=== PATIENT | female | born 1990 | race Caucasian/White ===

== ENCOUNTER 2016-09-15 10:41 | Emergency (ER) | payer MEDICAID ==
[~2016-09-15] VITALS: Ht 172.7 cm; Wt 90.0 kg
[~2016-09-15 10:41] MED LIST: CLON0.5T PO; DEPA250T2 PO; NICO7DIS2 T-DERMAL; NORE0.354 PO
[2016-09-15 10:43] VITALS: BP 125/64; PULSE 65; RESP 16; TEMP 98.1; O2SAT 96
[2016-09-15] MEDS ORDERED: DOXY100T PO (11:12)
[2016-09-15] MEDS ORDERED: MOME17I EACH NARE (11:13)
--- NOTE | 2016-09-15 11:13 | PD ---
HPI Chief Complaint: Cold / Flu Symptoms Time Seen by Provider: 11:08 Travel History International Travel<30 days: No Contact w/Intl Traveler<30days: No Traveled to known affect area: No History of Present Illness HPI 26-year-old female presents emergency Department with complaint of facial pressure, headache, nasal congestion, cough 2 weeks. Fever and throat irritation in the beginning but not now. Reports ear pressure. Has tried over- the-counter medications with minimal symptom relief. Her son was also sick. No known aggravating factors. Denies shortness of breath, chest pain, nausea, vomiting. Reports productive cough with green/yellowish sputum. Allergies to amoxicillin. No other modifying factors or associated signs and symptoms. PFSH Past Medical History Asthma: No Atrial Fibrillation: Yes Blood Disorders: No Anxiety: Yes Depression: No Heart Rhythm Problems: No Cancer: No Cardiovascular Problems: No High Cholesterol: No Chemotherapy: No Chest Pain: No Congestive Heart Failure: No COPD: No Diabetes: No Diminished Hearing: No Gastrointestinal Disorders: Yes (EMESIS OF BLOOD IN PAST ) Genitourinary: No Immune Disorder: No Musculoskeletal: No Neurologic: Yes Psychiatric: Yes Reproductive: No Respiratory: No Immunizations Current: No Radiation Therapy: No Sleep Apnea: No Thyroid Disease: No ?: Not LMP: 09/07/15 : 1 Para: 1 Past Surgical History Other Surgery: Yes (LEFT HAND ) Social History Alcohol Use: Yes (weekly) Tobacco Use: Yes (4 cigarettes per day) Substance Use: Yes (marijuana) Allergies-Medications (Allergen,Severity, Reaction): Coded Allergies: Amoxicillin (Verified Allergy, Mild, vomiting, 09/15/16) Reported Meds & Prescriptions Reported Meds & Active Scripts Active Doxycycline Hyclate 100 Mg Tab 100 Mg PO BID 10 Days Norethindrone 35 (Norethindrone) 0.35 Mg Tab 1 Tab PO DAILY Reported Depakote DR (Divalproex Sodium) 250 Mg Tabdr 250 Mg PO TID Nicotine Patch (Nicotine) 7 Mg/24 Hr Patch 7 Mg T-DERMAL DAILY Clonazepam 0.5 Mg Tab 0.5 Mg PO BID Review of Systems Except as stated in HPI: all other systems reviewed are Neg Physical Exam Narrative GENERAL: Well-nourished, well-developed female patient, in no acute distress; afebrile, nontoxic-appearing SKIN: Warm and dry. No rash. HEAD: Atraumatic. Normocephalic. Frontal and maxillary sinus tenderness on palpation. EYES: Pupils equal and round at 3 mm with brisk reaction. No scleral icterus. No injection or drainage. PERRLA. ENT: Mucosa pink and moist. Oropharynx without erythema, exudates, tonsillar edema.. No uvular edema. No uvular, palatal, or tonsillar deviation. Airway patent. Bilateral nasal turbinates are erythematous and edematous. EARS: Bilateral pinnae and external canals appear within normal limits. Bilateral tympanic membranes without erythema, dullness or perforation. NECK: Trachea midline. No lymphadenopathy. CARDIOVASCULAR: Regular rate and rhythm. No murmur appreciated. RESPIRATORY: No accessory muscle use. Clear to auscultation. Breath sounds equal bilaterally. GASTROINTESTINAL: Abdomen soft, non-tender, nondistended. Hepatic and splenic margins not palpable. Bowel sounds are active 4 quadrants. MUSCULOSKELETAL: No obvious deformities. No clubbing. No cyanosis. No edema. NEUROLOGICAL: Awake and alert. Oriented 3. No obvious cranial nerve deficits. Motor grossly within normal limits. Normal speech. Moves all extremities. 5/5 strength to all extremities. PSYCHIATRIC: Appropriate mood and affect; insight and judgment normal. Data Data Last Documented VS Vital Signs Date Time Temp Pulse Resp B/P Pulse Ox O2 Delivery O2 Flow Rate FiO2 09/15/16 10:43 98.1 65 16 125/64 96 Room Air MDM Medical Decision Making Medical Screen Exam Complete: Yes Emergency Medical Condition: Yes Medical Record Reviewed: Yes Differential Diagnosis Sinusitis, upper respiratory infection, viral illness Narrative Course 26-year-old female with history of present illness and physical exam consistent with sinusitis. Patient has been sick with symptoms for 2 weeks. Afebrile in the ER. Nontoxic appearing. Allergic to amoxicillin. Doxycycline and Nasonex prescribed for home. Patient is medically cleared and stable for discharge. Discussed reasons to return to the emergency department. Instructed patient to follow up with primary care provider. Patient agrees with treatment plan. The patients vital signs are stable and the patient is stable for outpatient follow- up and treatment. Patient discharged home, stable and in no acute distress. Diagnosis Primary Impression: Sinusitis Qualified Code: J32.9 - Sinusitis, unspecified chronicity, unspecified location Referrals: Primary Care Physician Patient Instructions: General Instructions, Sinusitis (ED) Additional Instructions: Ibuprofen or Tylenol as directed and as needed to reduce fever/pain Get plenty of sleep/rest Drink plenty of fluids to prevent dehydration [place] diet to encourage nutrition such as crackers, fruit, applesauce, toast, soup etc. Use an air humidifier/turn off ceiling fans Follow-up with your primary care provider Return immediately to the emergency department with worsening of symptoms Med/Other Pt SpecificInfo: Prescription(s) given Scripts Mometasone Nasal Ross (Nasonex Nasal Ross)50 Mcg/Act Naspr2 Ross EACH NARE DAILY PRN (NASAL CONGESTION) #1 BOTTLE Ref 0 Prov:Destiny Shi 09/15/16 Doxycycline Hyclate 100 Mg [id number] Mg PO BID 10 Days Prov:Destiny Shi 09/15/16 Disposition: 01 DISCHARGE HOME Condition: Stable Destiny Shi Sep 15, 2016 11:13
== END 2016-09-15 11:21 | disposition home or self-care (01) ==
LOC: NEPB 10:41
DX: J32.9 Chronic sinusitis, unspecified (principal); R05 Cough; I48.91 Unspecified atrial fibrillation; Z86.59 Personal history of other mental and behavioral disorders; Z86.69 Personal history of other diseases of the nervous system and sense organs; Z72.0 Tobacco use
CPT/HCPCS: 99283

== ENCOUNTER 2016-09-27 18:17 | Emergency (ER) | payer MEDICAID ==
[~2016-09-27] VITALS: Ht 172.7 cm; Wt 80.0 kg
[~2016-09-27 18:17] MED LIST changes: +DOXY100T PO; +MOME17I EACH NARE
[2016-09-27 18:20] VITALS: BP 117/68; PULSE 78; RESP 16; TEMP 97.8; O2SAT 96
[2016-09-27] MEDS ORDERED: PRED-503 PO (20:01)
[2016-09-27] MEDS ORDERED: CIPR-9 PO (20:01)
--- NOTE | 2016-09-27 20:05 | PD ---
HPI Chief Complaint: Cold / Flu Symptoms Time Seen by Provider: 20:02 Travel History International Travel<30 days: No Contact w/Intl Traveler<30days: No Traveled to known affect area: No History of Present Illness HPI 26-year-old white female presents to emergency Department with complaints of persistent sinus problems. She's been sick now for nearly 5 weeks. She is just finish a course of doxycycline. She states that she had some improvement but as soon as she stopped her antibiotics the symptoms return. She has had frontal sinus pain, pressure, yellowish nasal discharge, rhinitis. Positive ear pressure but no sore throat. She has had some subjective fever. She denies any nausea vomiting. No abdominal pain or diarrhea. No dysuria or frequency. PFSH Past Medical History Asthma: No Atrial Fibrillation: Yes Blood Disorders: No Anxiety: Yes Depression: No Heart Rhythm Problems: No Cancer: No Cardiovascular Problems: No High Cholesterol: No Chemotherapy: No Chest Pain: No Congestive Heart Failure: No COPD: No Diabetes: No Diminished Hearing: No Gastrointestinal Disorders: Yes (EMESIS OF BLOOD IN PAST ) Genitourinary: No Immune Disorder: No Musculoskeletal: No Neurologic: Yes Psychiatric: Yes Reproductive: No Respiratory: No Immunizations Current: No Radiation Therapy: No Sleep Apnea: No Thyroid Disease: No ?: Unknown LMP: 09/26/16 : 1 Para: 1 Past Surgical History Other Surgery: Yes (LEFT HAND ) Social History Alcohol Use: Yes (weekly) Tobacco Use: Yes (4 cigarettes per day) Substance Use: Yes (marijuana) Allergies-Medications (Allergen,Severity, Reaction): Coded Allergies: Amoxicillin (Verified Allergy, Mild, vomiting, 09/27/16) Reported Meds & Prescriptions Reported Meds & Active Scripts Active Deltasone (Prednisone) 20 Mg Tab 20 Mg PO BID Cipro (Ciprofloxacin HCl) 500 Mg Tab 500 Mg PO BID Nasonex Nasal Moon (Mometasone Furoate) 50 Mcg/Act Naspr 2 Moon EACH NARE DAILY PRN Norethindrone 35 (Norethindrone) 0.35 Mg Tab 1 Tab PO DAILY Reported Depakote DR (Divalproex Sodium) 250 Mg Tabdr 250 Mg PO TID Clonazepam 0.5 Mg Tab 0.5 Mg PO BID Review of Systems Except as stated in HPI: all other systems reviewed are Neg Physical Exam Narrative GENERAL: Well-developed, well-nourished in no acute distress. Nontoxic appearing. HEAD: Normocephalic, atraumatic. Pain on percussion of the frontal sinus EYES: Pupils equal round and reactive. Extraocular motions intact. No scleral icterus. No injection or drainage. ENT: TMs clear without erythema. The external auditory canals clear. Nose: Edema of the turbinates. Clear discharge. Posterior pharynx is pink and moist. No tonsillar edema or exudate. Uvula midline. Airway patent. NECK: Trachea midline.Supple, nontender, moves head freely. No central bony tenderness or spasm. CARDIOVASCULAR: Regular rate and rhythm without murmurs, gallops, or rubs. RESPIRATORY: Clear to auscultation. Breath sounds equal bilaterally. No wheezes , rales, or rhonchi. GASTROINTESTINAL: Abdomen soft, non-tender, nondistended. No hepato-splenomegaly , or palpable masses. No guarding. EXTREMITIES: No clubbing, cyanosis, or edema. No joint tenderness, effusion, or edema noted. BACK: Nontender without deformity or crepitance. No flank tenderness. Data Data Last Documented VS Vital Signs Date Time Temp Pulse Resp B/P Pulse Ox O2 Delivery O2 Flow Rate FiO2 09/27/16 18:20 97.8 78 16 117/68 96 Room Air MDM Medical Decision Making Medical Screen Exam Complete: Yes Emergency Medical Condition: Yes Medical Record Reviewed: Yes Differential Diagnosis MDM: High Differential diagnoses: Pneumonia, bronchitis, URI, sinusitis Narrative Course Patient will be given Cipro and prednisone. She is strongly encouraged to follow-up with a primary care doctor or ENT. Diagnosis Primary Impression: Sinusitis Qualified Code: J01.10 - Subacute frontal sinusitis Patient Instructions: General Instructions Additional Instructions: Rest. Increase fluids. Prednisone and Cipro. Daily Zyrtec or Claritin. Follow-up with a primary care doctor or an ENT physician within one week. Return to the ER for emergencies. Med/Other Pt SpecificInfo: Prescription(s) given Scripts Prednisone (Deltasone)20 Mg Tab20 Mg PO BID #14 TAB Prov:Lincoln Max MD 09/27/16 Ciprofloxacin (Cipro)500 Mg [id number] Mg PO BID #20 TAB Prov:Lincoln Max MD 09/27/16 Selwyn Villegas Sep 27, 2016 20:05
== END 2016-09-27 20:16 | disposition home or self-care (01) ==
LOC: NEPB 18:17
DX: J01.10 Acute frontal sinusitis, unspecified (principal); F17.210 Nicotine dependence, cigarettes, uncomplicated
CPT/HCPCS: 99283

== ENCOUNTER 2016-11-24 13:19 | Emergency (ER) | payer MEDICAID, OTHER ==
[~2016-11-24] VITALS: Ht 172.7 cm; Wt 76.5 kg
[~2016-11-24 13:19] MED LIST changes: +CIPR-9 PO; -DOXY100T PO; -NICO7DIS2 T-DERMAL; +PRED-503 PO
[2016-11-24] MEDS ORDERED: SODIUM CHLOR 0.9% 1000 ML INJ 1,000 ML IV SCH (16:07)
--- NOTE | 2016-11-24 16:13 | PD ---
HPI Chief Complaint: Abdominal Pain Time Seen by Provider: 16:00 Travel History International Travel<30 days: No Contact w/Intl Traveler<30days: No Traveled to known affect area: No History of Present Illness HPI The patient is a 26-year-old female who presents emergency department for abdominal pain. The patient states she developed abdominal pain yesterday morning. The abdominal pain is located lower aspect of the abdomen, mostly on the right side, associated with nausea and vomiting. She also notes a few episodes of loose, watery diarrhea. Abdominal pain is been constant, not alleviated with Motrin at home, and moderate. The patient states she is currently on her menstrual cycle and takes control, denies . Patient denies any dysuria, frequency, urgency, hematuria, or vaginal discharge. The patient does note she is , currently on her menstrual cycle , denies any previous abdominal surgeries. The patient states she was hungry earlier today, went to the cafeteria after she checked into the emergency department and ate a burger and fries, now notes increasing pain. PFSH Past Medical History Asthma: No Atrial Fibrillation: Yes Blood Disorders: No Anxiety: Yes Depression: No Heart Rhythm Problems: No Cancer: No Cardiovascular Problems: No High Cholesterol: No Chemotherapy: No Chest Pain: No Congestive Heart Failure: No COPD: No Diabetes: No Diminished Hearing: No Gastrointestinal Disorders: Yes (EMESIS OF BLOOD IN PAST ) Genitourinary: No Immune Disorder: No Musculoskeletal: No Neurologic: Yes Psychiatric: Yes Reproductive: No Respiratory: No Immunizations Current: No Radiation Therapy: No Sleep Apnea: No Thyroid Disease: No ?: Not LMP: 10/2016 : 1 Para: 1 Past Surgical History Other Surgery: Yes (LEFT HAND ) Social History Alcohol Use: Yes (weekly) Tobacco Use: Yes (4 cigarettes per day) Substance Use: Yes (marijuana) Allergies-Medications (Allergen,Severity, Reaction): Coded Allergies: Amoxicillin (Verified Allergy, Mild, vomiting, 11/24/16) Reported Meds & Prescriptions Reported Meds & Active Scripts Active Deltasone (Prednisone) 20 Mg Tab 20 Mg PO BID Norethindrone 35 (Norethindrone) 0.35 Mg Tab 1 Tab PO DAILY Reported Acyclovir 400 Mg Tab 400 Mg PO DAILY Depakote DR (Divalproex Sodium) 250 Mg Tabdr 250 Mg PO TID Clonazepam 0.5 Mg Tab 0.5 Mg PO BID Review of Systems Except as stated in HPI: all other systems reviewed are Neg General / Constitutional: No: Fever Cardiovascular: No: Chest Pain or Discomfort Respiratory: No: Shortness of Breath Gastrointestinal: Positive: Nausea, Vomiting, Diarrhea, Abdominal Pain Genitourinary: Positive: Vaginal Bleeding (currently on her menstrual cycle), No: Dysuria, Hematuria, Discharge Musculoskeletal: No: Weakness Neurologic: No: Weakness Physical Exam Narrative GENERAL: Awake, alert, pleasant 26-year-old female who appears her stated age and is in no acute respiratory distress. SKIN: Focused skin assessment warm/dry. HEAD: Atraumatic. Normocephalic. EYES: No injection or drainage. ENT: No nasal bleeding or discharge. Mucous membranes pink and moist. NECK: Trachea midline. No JVD. CARDIOVASCULAR: Regular rate and rhythm. No murmur appreciated. RESPIRATORY: No accessory muscle use. Clear to auscultation. Breath sounds equal bilaterally. GASTROINTESTINAL: Abdomen soft, stria present. Tenderness in right lower quadrant and suprapubic, no rebound tenderness. Back: No CVA tenderness. MUSCULOSKELETAL: No obvious deformities. No clubbing. No cyanosis. No edema. NEUROLOGICAL: Awake and alert. No obvious cranial nerve deficits. Motor grossly within normal limits. Normal speech. PSYCHIATRIC: Appropriate mood and affect; insight and judgment normal. Data Data Last Documented VS Vital Signs Date Time Temp Pulse Resp B/P Pulse Ox O2 Delivery O2 Flow Rate FiO2 11/24/16 16:35 67 20 118/75 100 Room Air Orders Complete Blood Count With Diff (11/24/16 16:07) Comprehensive Metabolic Panel (11/24/16 16:07) Lipase (11/24/16 16:07) Urinalysis - C+S If Indicated (11/24/16 16:07) Ct Abd/Pel W/O Iv Contrast (11/24/16 16:07) Iv Access Insert/Monitor (11/24/16 16:07) Ecg Monitoring (11/24/16 16:07) Oximetry (11/24/16 16:07) Morphine Inj (Morphine Inj) (11/24/16 16:15) Ondansetron Inj (Zofran Inj) (11/24/16 16:15) Sodium Chlor 0.9% 1000 Ml Inj (Ns 1000 M (11/24/16 16:07) Sodium Chloride 0.9% Flush (Ns Flush) (11/24/16 16:15) Ed Urine Pregnancytest Poc (11/24/16 16:07) Labs Laboratory Tests Test 11/24/16 16:20 White Blood Count 11.9 TH/MM3 Red Blood Count 4.40 MIL/MM3 Hemoglobin 14.0 GM/DL Hematocrit 42.1 % Mean Corpuscular Volume 95.7 FL Mean Corpuscular Hemoglobin 31.8 PG Mean Corpuscular Hemoglobin 33.3 % Concent Red Cell Distribution Width 13.4 % Platelet Count 270 TH/MM3 Mean Platelet Volume 7.9 FL Neutrophils (%) (Auto) 66.7 % Lymphocytes (%) (Auto) 22.1 % Monocytes (%) (Auto) 9.8 % Eosinophils (%) (Auto) 1.0 % Basophils (%) (Auto) 0.4 % Neutrophils # (Auto) 7.9 TH/MM3 Lymphocytes # (Auto) 2.6 TH/MM3 Monocytes # (Auto) 1.2 TH/MM3 Eosinophils # (Auto) 0.1 TH/MM3 Basophils # (Auto) 0.0 TH/MM3 CBC Comment DIFF FINAL Differential Comment Urine Color YELLOW Urine Turbidity CLEAR Urine pH 6.5 Urine Specific [place] 1.029 Urine Protein TRACE mg/dL Urine Glucose (UA) NEG mg/dL Urine Ketones NEG mg/dL Urine Occult Blood NEG Urine Nitrite NEG Urine Bilirubin NEG Urine Urobilinogen LESS THAN 2.0 MG/DL Urine Leukocyte Esterase NEG Urine RBC LESS THAN 1 /hpf Urine WBC 1 /hpf Urine Squamous Epithelial 2 /hpf Cells Urine Mucus FEW /lpf Microscopic Urinalysis Comment CULT NOT INDICATED Sodium Level 144 MEQ/L Potassium Level 3.5 MEQ/L Chloride Level 106 MEQ/L Carbon Dioxide Level 31.3 MEQ/L Anion Gap 7 MEQ/L Blood Urea Nitrogen 13 MG/DL Creatinine 0.90 MG/DL Estimat Glomerular Filtration 75 ML/MIN Rate Random Glucose 86 MG/DL Calcium Level 8.3 MG/DL Total Bilirubin 0.4 MG/DL Aspartate Amino Transf 16 U/L (AST/SGOT) Alanine Aminotransferase 22 U/L (ALT/SGPT) Alkaline Phosphatase 57 U/L Total Protein 6.6 GM/DL Albumin 3.5 GM/DL Lipase 86 U/L MDM Medical Decision Making Medical Screen Exam Complete: Yes Emergency Medical Condition: Yes Medical Record Reviewed: Yes Interpretation(s) Laboratory Tests Test 11/24/16 16:20 White Blood Count 11.9 TH/MM3 Red Blood Count 4.40 MIL/MM3 Hemoglobin 14.0 GM/DL Hematocrit 42.1 % Mean Corpuscular Volume 95.7 FL Mean Corpuscular Hemoglobin 31.8 PG Mean Corpuscular Hemoglobin 33.3 % Concent Red Cell Distribution Width 13.4 % Platelet Count 270 TH/MM3 Mean Platelet Volume 7.9 FL Neutrophils (%) (Auto) 66.7 % Lymphocytes (%) (Auto) 22.1 % Monocytes (%) (Auto) 9.8 % Eosinophils (%) (Auto) 1.0 % Basophils (%) (Auto) 0.4 % Neutrophils # (Auto) 7.9 TH/MM3 Lymphocytes # (Auto) 2.6 TH/MM3 Monocytes # (Auto) 1.2 TH/MM3 Eosinophils # (Auto) 0.1 TH/MM3 Basophils # (Auto) 0.0 TH/MM3 CBC Comment DIFF FINAL Differential Comment Urine Color YELLOW Urine Turbidity CLEAR Urine pH 6.5 Urine Specific [place] 1.029 Urine Protein TRACE mg/dL Urine Glucose (UA) NEG mg/dL Urine Ketones NEG mg/dL Urine Occult Blood NEG Urine Nitrite NEG Urine Bilirubin NEG Urine Urobilinogen LESS THAN 2.0 MG/DL Urine Leukocyte Esterase NEG Urine RBC LESS THAN 1 /hpf Urine WBC 1 /hpf Urine Squamous Epithelial 2 /hpf Cells Urine Mucus FEW /lpf Microscopic Urinalysis Comment CULT NOT INDICATED Sodium Level 144 MEQ/L Potassium Level 3.5 MEQ/L Chloride Level 106 MEQ/L Carbon Dioxide Level 31.3 MEQ/L Anion Gap 7 MEQ/L Blood Urea Nitrogen 13 MG/DL Creatinine 0.90 MG/DL Estimat Glomerular Filtration 75 ML/MIN Rate Random Glucose 86 MG/DL Calcium Level 8.3 MG/DL Total Bilirubin 0.4 MG/DL Aspartate Amino Transf 16 U/L (AST/SGOT) Alanine Aminotransferase 22 U/L (ALT/SGPT) Alkaline Phosphatase 57 U/L Total Protein 6.6 GM/DL Albumin 3.5 GM/DL Lipase 86 U/L CT abdomen and pelvis reveals no evidence for appendicitis. Cystic mass left adnexal region measuring 3 cm. Lack of intravenous contrast does make detection of etiologies such as pyelonephritis difficult. There is a normal clear and appendix in the right lower quadrant without inflammatory changes. Differential Diagnosis Differential diagnosis includes appendicitis, ovarian torsion, ovarian cyst, PID , cervicitis, UTI, gastritis, enteritis, colitis. Narrative Course IV was established, labs are drawn and sent, and the patient was placed on cardiac telemetry monitoring and continuous pulse oximetry monitoring. The patient was administered morphine, Zofran, and IV fluids. Bedside UA test was obtained and UA was sent to lab. CT of the abdomen and pelvis was ordered to rule out appendicitis. Laboratory evaluation reveals mildly elevated white count of 11.9, LFTs and lipase are unremarkable. UA is negative. CT of the abdomen and pelvis is negative. The patient most likely has gastroenteritis with secondary abdominal pain. The patient is stable for outpatient follow-up. The patient will be provided a copy of her CT results and lab results at discharge with antiemetics. The patient will also be provided a work excuse. Patient is stable for outpatient follow-up. Diagnosis Primary Impression: Gastroenteritis Additional Impression: Abdominal pain Qualified Code: R10.30 - Lower abdominal pain Patient Instructions: General Instructions Additional Instructions: Zofran as directed. Clear liquid diet and advance as tolerated. Work excuse for 2 days. Follow-up with your primary physician. Please provide the patient a copy of her CT results and lab results at discharge. Med/Other Pt SpecificInfo: Prescription(s) given Scripts Ondansetron Odt (Zofran Odt)4 Mg Tab4 Mg SL Q6HR PRN (Nausea/Vomiting) #10 TAB Ref 0 Prov:Moshe Sheffield MD 11/24/16 Disposition: DISCHARGE HOME Condition: Stable Moshe Sheffield MD Nov 24, 2016 16:13
[2016-11-24] MEDS ORDERED: SODIUM CHLORIDE 0.9% FLUSH 10 ML FLUSH IV FLUSH PRN (16:15)
[2016-11-24] MEDS ORDERED: MORPHINE SULFATE 4 MG/ML INJ IV PUSH ONE (16:15)
[2016-11-24] MEDS ORDERED: ONDANSETRON HCL 4 MG/2 ML VIAL IVP ONE (16:15)
[2016-11-24] MEDS ORDERED: ACYC400T PO (16:20)
[2016-11-24 16:35] VITALS: BP 118/75; PULSE 67; RESP 20; O2SAT 100
[2016-11-24 16:40] VITALS: RESP 20
[2016-11-24 16:42] LABS: AUTOMATED NEUTROPHIL # 7.9 TH/MM3 (1.8-7.7); BASOPHIL % 0.4 % (0.0-2.0); EOSINOPHIL # 0.1 TH/MM3 (0-0.4); HEMATOCRIT 42.1 % (35.0-46.0); HEMO FLAGS DIFF FINAL; LYMPH % 22.1 % (9.0-44.0); LYMPHOCYTE # 2.6 TH/MM3 (1.0-4.8); MEAN CELL VOLUME 95.7 FL (80.0-100.0); MEAN CORPUSCULAR HEMOGLOBIN 31.8 PG (27.0-34.0); MEAN CORPUSCULAR HGB CONC 33.3 % (32.0-36.0); MONO % 9.8 % (0.0-8.0); NEUT % 66.7 % (16.0-70.0); PLATELET COUNT 270 TH/MM3 (150-450); RED CELL DISTRIBUTION WIDTH 13.4 % (11.6-17.2); WHITE BLOOD COUNT 11.9 TH/MM3 (4.0-11.0)
[2016-11-24 16:47] LABS: BLOOD, URINE NEG (NEG); GLUCOSE,URINE NEG (NEG); KETONE, URINE NEG (NEG); MUCUS URINE FEW /lpf (OCC); NITRITE,URINE NEG (NEG); PH, URINE 6.5 (5.0-8.5); SQUAMOUS EPITHELIAL CELL URINE 2 /hpf (0-5); URINE COLOR YELLOW (YELLW/STRAW)
[2016-11-24 16:53] LABS: COMMENT (UR) CULT NOT INDICATED; CULTURE IF INDICATED CULT NOT INDICATED
[2016-11-24 17:02] LABS: ANION GAP 7 MEQ/L (5-15); AST (GOT) 16 U/L (15-37); BICARBONATE 31.3 MEQ/L (21.0-32.0); BLOOD UREA NITROGEN 13 MG/DL (7-18); CHLORIDE 106 MEQ/L (98-107); GLOMERULAR FILTRATION RATE 75 ML/MIN (>89); POTASSIUM 3.5 MEQ/L (3.5-5.1); SODIUM (NA) 144 MEQ/L (136-145)
[2016-11-24 17:05] LABS: ALKALINE PHOSPHATASE 57 U/L (45-117); ALT (GPT) 22 U/L (10-53); TOTAL BILIRUBIN ADULT 0.4 MG/DL (0.2-1.0)
--- NOTE | 2016-11-24 17:21 | RADRPT ---
EXAM DATE/TIME: 11/24/2016 17:05 [facility] COMPARISON: No previous studies available for comparison. INDICATIONS : Right lower quadrant pain. ORAL CONTRAST: No oral contrast ingested. RADIATION DOSE: 7.24 CTDIvol (mGy) MEDICAL HISTORY : None SURGICAL HISTORY : None. ENCOUNTER: Initial ACUITY: 1 day PAIN SCALE: 4/10 LOCATION: Right lower quadrant TECHNIQUE: Volumetric scanning of the abdomen and pelvis was performed. Using automated exposure control and adjustment of the mA and/or kV according to patient size, radiation dose was kept as low as reasonably achievable to obtain optimal diagnostic quality images. FINDINGS: Lung bases are clear. There is no pericardial effusion. The liver is free of focal de fects. Spleen, pancreas, adrenals and kidneys are unremarkable. There is a normal appearing appendix in the right lower quadrant without inflammatory changes. This contains air best seen on coronal acquisition 601 image 43. There is no free fluid. There is a 3 cm cystic mass in the left adnexal region. The right adnexal r egion is unremarkable. CONCLUSION: 1. There is no evidence for appendicitis. 2. Cystic mass left adnexal region measuring 3 cm. 3. Lack of intravenous contrast does make detection of etiology such as pyelonephritis difficult. Chester Orozco MD FACR on November 24, 2016 at 17:14 Board Certified Radiologist. This report was verified electronically.
[2016-11-24] MEDS ORDERED: ZOFR4TAB3 SL (17:30)
[2016-11-24 17:54] VITALS: BP 118/75
== END 2016-11-24 18:07 | disposition home or self-care (01) ==
LOC: NEPE 13:19 → NED 15:51 → NEPE 15:59
DX: K52.9 Noninfective gastroenteritis and colitis, unspecified (principal); R10.30 Lower abdominal pain, unspecified; R11.2 Nausea with vomiting, unspecified; I48.91 Unspecified atrial fibrillation; F17.210 Nicotine dependence, cigarettes, uncomplicated
CPT/HCPCS: 74176; 80053; 81001; 83690; 84703; 85025; 96361; 96374; 96375; 99284; J2270; J2405; J7030

== ENCOUNTER 2016-11-29 15:54 | Emergency (ER) | payer MEDICAID, OTHER ==
[~2016-11-29] VITALS: Ht 172.7 cm; Wt 75.0 kg
[~2016-11-29 15:54] MED LIST changes: +ACYC400T PO; -CIPR-9 PO; -MOME17I EACH NARE; +ZOFR4TAB3 SL
[2016-11-29 15:56] VITALS: BP 120/80; PULSE 67; RESP 16; TEMP 98.5; O2SAT 99
[2016-11-29] MEDS ORDERED: DIVA250ER PO (18:53)
[2016-11-29] MEDS ORDERED: DEPA500T3 PO (18:53)
[2016-11-29 19:48] LABS: BLOOD, URINE NEG (NEG); GLUCOSE,URINE NEG (NEG); KETONE, URINE NEG (NEG); NITRITE,URINE NEG (NEG); PH, URINE 6.5 (5.0-8.5); SQUAMOUS EPITHELIAL CELL URINE 1 /hpf (0-5); URINE COLOR COLORLESS (YELLW/STRAW)
[2016-11-29 19:51] LABS: COMMENT (UR) CULT NOT INDICATED; CULTURE IF INDICATED CULT NOT INDICATED
[2016-11-29 20:00] VITALS: BP 120/56; PULSE 66; RESP 14; O2SAT 97
[2016-11-29] MEDS ORDERED: DOXY100C PO (20:35)
[2016-11-29] MEDS ORDERED: METR250 PO (20:35)
--- NOTE | 2016-11-29 20:35 | PD ---
HPI Chief Complaint: ENT Complaint Time Seen by Provider: 18:57 Travel History International Travel<30 days: No Contact w/Intl Traveler<30days: No Traveled to known affect area: No History of Present Illness HPI 26-year-old female came to the emergency room with history of sinus infection and vaginal discharge. Patient says that she has been having these symptoms for past couple days. Her nose and sinuses feel very congested. She's been having fever and chills. She was wearing a thick jacket in the room. She is also complaining of greenish discharge from her vaginal area that is fishy odor. [facility] Past Medical History Narrative Medical List of her past medical, surgical, social and family history was reviewed from the nursing note. Asthma: No Atrial Fibrillation: Yes Blood Disorders: No Bipolar Disorder: Yes Anxiety: Yes Depression: No Heart Rhythm Problems: No Cancer: No Cardiovascular Problems: No High Cholesterol: No Chemotherapy: No Chest Pain: No Congestive Heart Failure: No COPD: No Diabetes: No Diminished Hearing: No Gastrointestinal Disorders: Yes (EMESIS OF BLOOD IN PAST ) Genitourinary: No Immune Disorder: No Musculoskeletal: No Neurologic: Yes Psychiatric: Yes Reproductive: No Respiratory: No Integumentary: Yes (herpes) Immunizations Current: No Radiation Therapy: No Seizures: Yes Sleep Apnea: No Thyroid Disease: No Tetanus Vaccination: < 5 Years Influenza Vaccination: No ?: Not LMP: 11/25/16 : 1 Para: 1 Miscarriage: 0 : 0 Past Surgical History Other Surgery: Yes (LEFT HAND ) Social History Alcohol Use: Yes (weekly) Tobacco Use: Yes (4 cigarettes per day) Substance Use: Yes (marijuana) Allergies-Medications (Allergen,Severity, Reaction): Coded Allergies: Amoxicillin (Verified Adverse Reaction, Mild, vomiting, 11/29/16) Comments List of allergies reviewed from the nursing note. Reported Meds & Prescriptions Reported Meds & Active Scripts Active Flagyl (Metronidazole) 250 Mg Tab 250 Mg PO TID Doxycycline Hyclate 100 Mg Cap 100 Mg PO BID Zofran Odt (Ondansetron Odt) 4 Mg Tab 4 Mg SL Q6HR PRN Reported Depakote ER (Divalproex Sodium) 250 Mg Bridgett 250 Mg PO DAILY Depakote ER (Divalproex Sodium) 500 Mg Bridgett 500 Mg PO HS Acyclovir 400 Mg Tab 400 Mg PO DAILY Clonazepam 0.5 Mg Tab 0.5 Mg PO BID Narrative Medication List of her home medications reviewed from the nursing note. Review of Systems Except as stated in HPI: all other systems reviewed are Neg Physical Exam Narrative GENERAL: Awake, alert, no obvious distress SKIN: Focused skin assessment warm/dry. HEAD: Atraumatic. Normocephalic. EYES: Pupils equal and round. No scleral icterus. No injection or drainage. ENT: No nasal bleeding or discharge. Mucous membranes pink and moist. NECK: Trachea midline. No JVD. CARDIOVASCULAR: Regular rate and rhythm. No murmur appreciated. RESPIRATORY: No accessory muscle use. Clear to auscultation. Breath sounds equal bilaterally. GASTROINTESTINAL: Abdomen soft, non-tender, nondistended. Hepatic and splenic margins not palpable. : External inspection was within normal limit. Speculum exam was done and cultures were collected. No obvious foul-smelling discharge noticed. No CMT or adnexal tenderness. MUSCULOSKELETAL: No obvious deformities. No clubbing. No cyanosis. No edema. NEUROLOGICAL: Awake and alert. No obvious cranial nerve deficits. Motor grossly within normal limits. Normal speech. PSYCHIATRIC: Appropriate mood and affect; insight and judgment normal. Data Data Last Documented VS Vital Signs Date Time Temp Pulse Resp B/P Pulse Ox O2 Delivery O2 Flow Rate FiO2 11/29/16 20:00 66 14 120/56 97 Room Air 11/29/16 15:56 98.5 Orders Gc And Chlamydia Pcr (11/29/16 19:26) Urinalysis - C+S If Indicated (11/29/16 19:26) Ed Urine Pregnancytest Poc (11/29/16 19:26) Metronidazole (Flagyl) (11/29/16 20:45) Doxycycline (Vibramycin) (11/29/16 20:45) Wet Prep Profile (11/29/16 21:12) Labs Laboratory Tests Test 11/29/16 11/29/16 11/29/16 19:39 19:49 19:50 Urine Color COLORLESS Urine Turbidity CLEAR Urine pH 6.5 Urine Specific [place] 1.002 Urine Protein NEG mg/dL Urine Glucose (UA) NEG mg/dL Urine Ketones NEG mg/dL Urine Occult Blood NEG Urine Nitrite NEG Urine Bilirubin NEG Urine Urobilinogen LESS THAN 2.0 MG/DL Urine Leukocyte Esterase TRACE Urine WBC 1 /hpf Urine Squamous Epithelial 1 /hpf Cells Microscopic Urinalysis Comment CULT NOT INDICATED Chlamydia trachomatis DNA NOT DETECTED (PCR) Neisseria gonorrhoeae DNA NOT DETECTED (PCR) Clue Cells (Wet Prep) NONE SEEN Vaginal Trichomonas (Wet Prep) NONE SEEN Vaginal Yeast (Wet Prep) NONE SEEN MDM Medical Decision Making Medical Screen Exam Complete: Yes Emergency Medical Condition: Yes Medical Record Reviewed: Yes Differential Diagnosis Sinusitis, vaginitis Narrative Course 8:30 PM patient was given 1 dose of medication here and discharged home on prescription. Procedures EKG Prior to Arrival: No Diagnosis Primary Impression: Sinusitis Qualified Code: J01.90 - Acute sinusitis, recurrence not specified, unspecified location Additional Impression: Vaginitis Qualified Code: N76.0 - Acute vaginitis Referrals: Primary Care Physician 1 week Additional Instructions: Please return to the ER if the condition worsens or any other new concerns. The medications as per the prescription direction. Protected sex with condoms only for 4 weeks. Her partner will need to be treated if the GC and/or chlamydia comes back positive. Follow-up with the primary care in couple days. Med/Other Pt SpecificInfo: Prescription(s) given Scripts Metronidazole (Flagyl)250 Mg [id number] Mg PO TID #14 TAB Ref 0 Prov:Deborah Knott MD 11/29/16 Doxycycline Hyclate 100 Mg [id number] Mg PO BID #20 CAP Ref 0 Prov:Deborah Knott MD 11/29/16 Disposition: DISCHARGE HOME Condition: Stable Deborah Knott MD Nov 29, 2016 20:35
[2016-11-29] MEDS ORDERED: DOXYCYCLINE HYCLATE 100 MG CAP PO ONE (20:45)
[2016-11-29] MEDS ORDERED: metroNIDAZOLE 500 MG TAB PO ONE (20:45)
[2016-11-29 22:25] LABS: CHLAMYDIA PCR NOT DETECTED (NOT DETECT); NEISSERIA PCR NOT DETECTED (NOT DETECT)
== END 2016-11-29 20:52 | disposition home or self-care (01) ==
LOC: NEPA 15:54
DX: J01.90 Acute sinusitis, unspecified (principal); N76.0 Acute vaginitis; I48.91 Unspecified atrial fibrillation; F31.9 Bipolar disorder, unspecified; F41.9 Anxiety disorder, unspecified
CPT/HCPCS: 81001; 84703; 87210; 87491; 87591; 99283

== ENCOUNTER 2017-01-01 18:00 | Emergency (ER) | payer MEDICAID, OTHER ==
[~2017-01-01] VITALS: Ht 172.7 cm; Wt 76.9 kg
[~2017-01-01 18:00] MED LIST changes: -DEPA250T2 PO; +DEPA500T3 PO; +DIVA250ER PO; +DOXY100C PO; +METR250 PO; -NORE0.354 PO; -PRED-503 PO
[2017-01-01 18:03] VITALS: BP 108/63; PULSE 76; RESP 18; TEMP 98.2; O2SAT 98
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
[2017-01-01] MEDS ORDERED: AZITHROMYCIN PWD FOR SUSP 1 GM PACKET PO ONE (20:30)
[2017-01-01] MEDS ORDERED: LIDOCAINE HCL 1% 50 ML VIAL IM ONE (20:30)
[2017-01-01] MEDS ORDERED: cefTRIAXone 250 MG VIAL IM ONE (20:30)
[2017-01-01] MEDS ORDERED: ZYRT10CA PO (20:40)
[2017-01-01] MEDS ORDERED: FLUT1SPR5 EACH NARE (20:40)
[2017-01-01 22:49] LABS: CHLAMYDIA PCR NOT DETECTED (NOT DETECT); NEISSERIA PCR NOT DETECTED (NOT DETECT)
== END 2017-01-01 21:22 | disposition home or self-care (01) ==
LOC: NEPD 18:00
DX: N89.8 Other specified noninflammatory disorders of vagina (principal); J31.0 Chronic rhinitis; I48.91 Unspecified atrial fibrillation; F17.210 Nicotine dependence, cigarettes, uncomplicated
CPT/HCPCS: 84703; 87210; 87491; 87591; 96372; 99283; J0696

== ENCOUNTER 2017-06-13 16:25 | Emergency (ER) | payer MEDICAID ==
[~2017-06-13] VITALS: Ht 172.7 cm; Wt 74.6 kg
[~2017-06-13 16:25] MED LIST changes: +FLUT1SPR5 EACH NARE; +ZYRT10CA PO
[2017-06-13 16:26] VITALS: BP 112/68; PULSE 78; RESP 15; TEMP 98.6; O2SAT 97
[2017-06-13] MEDS ORDERED: MOME17I EACH NARE (17:10)
[2017-06-13] MEDS ORDERED: AZIT250T3 PO (17:10)
--- NOTE | 2017-06-13 17:10 | PD ---
HPI Chief Complaint: ENT Complaint Time Seen by Provider: 17:08 Travel History International Travel<30 days: No Contact w/Intl Traveler<30days: No Traveled to known affect area: No History of Present Illness HPI 27-year-old female presents to the emergency Department with complaint of cough , nasal congestion, ear pressure, sinus pressure 1 week. Denies fevers. Reports headaches. Reports throat irritation. Denies sulfa throat, difficulty swallowing, unusual drooling. Denies shortness of breath, abdominal pain, vomiting. Has been taking cold and flu Tylenol for symptom management. Symptoms are mild in severity. No known aggravating or relieving factors. Her son was sick with similar symptoms last week. Allergies to amoxicillin. Has no other medical complaints. No other modifying factors or associated signs and symptoms. PFSH Past Medical History Asthma: No Atrial Fibrillation: Yes Blood Disorders: No Bipolar Disorder: Yes Anxiety: Yes Depression: No Heart Rhythm Problems: No Cancer: No Cardiovascular Problems: No High Cholesterol: No Chemotherapy: No Chest Pain: No Congestive Heart Failure: No COPD: No Diabetes: No Diminished Hearing: No Gastrointestinal Disorders: Yes (EMESIS OF BLOOD IN PAST ) Genitourinary: No Immune Disorder: No Musculoskeletal: No Neurologic: Yes Psychiatric: Yes Reproductive: No Respiratory: No Integumentary: Yes (herpes) Immunizations Current: No Radiation Therapy: No Seizures: Yes Sleep Apnea: No Thyroid Disease: No ?: Not LMP: 05/31/17 : 1 Para: 1 Miscarriage: 0 : 0 Past Surgical History Other Surgery: Yes (LEFT HAND ) Social History Alcohol Use: Yes (weekly) Tobacco Use: Yes (4 cigarettes per day) Substance Use: Yes (marijuana) Allergies-Medications (Allergen,Severity, Reaction): Coded Allergies: amoxicillin (Unverified Adverse Reaction, Mild, vomiting, 04/15/17) Reported Meds & Prescriptions Reported Meds & Active Scripts Active Nasonex Nasal [place] (Mometasone Furoate) 50 Mcg/Act Naspr 2 [place] EACH NARE DAILY PRN Azithromycin 250 Mg Tab 250 Mg PO DIRECTED Take 2 tabs (500 mg) on day 1 then 1 tab daily x 4 days. Zyrtec Allergy (Cetirizine HCl) 10 Mg Cap 10 Mg PO DAILY 30 Days Flonase Nasal [place] (Fluticasone Nasal [place]) 50 Mcg/Act [place] 100 Mcg EACH NARE BID 14 Days Flagyl (Metronidazole) 250 Mg Tab 250 Mg PO TID Doxycycline Hyclate 100 Mg Cap 100 Mg PO BID Zofran Odt (Ondansetron Odt) 4 Mg Tab 4 Mg SL Q6HR PRN Reported Depakote ER (Divalproex Sodium) 250 Mg Bridgett 250 Mg PO DAILY Depakote ER (Divalproex Sodium) 500 Mg Bridgett 500 Mg PO HS Acyclovir 400 Mg Tab 400 Mg PO DAILY Clonazepam 0.5 Mg Tab 0.5 Mg PO BID Review of Systems Except as stated in HPI: all other systems reviewed are Neg Physical Exam Narrative GENERAL: Well-nourished, well-developed female patient, in no acute distress; afebrile, nontoxic-appearing SKIN: Warm and dry. No rash. HEAD: Atraumatic. Normocephalic. EYES: Pupils equal and round. No scleral icterus. No injection or drainage. ENT: Mucosa pink and moist. No erythema or exudates. No uvular edema. No uvular , palatal, or tonsillar deviation. Airway patent. EARS: Bilateral pinnae and external canals appear within normal limits. Bilateral tympanic membranes without erythema, dullness or perforation. NECK: Trachea midline. No lymphadenopathy. CARDIOVASCULAR: Regular rate and rhythm. No murmur appreciated. RESPIRATORY: No accessory muscle use. Clear to auscultation. Breath sounds equal bilaterally. No retractions or tachypnea. GASTROINTESTINAL: Flat. MUSCULOSKELETAL: No obvious deformities. No clubbing. No cyanosis. No edema. NEUROLOGICAL: Awake and alert. Oriented 3. No obvious cranial nerve deficits. Motor grossly within normal limits. Normal speech. Moves all extremities. 5/5 strength to all extremities. PSYCHIATRIC: Appropriate mood and affect; insight and judgment normal. Data Data Last Documented VS Vital Signs Date Time Temp Pulse Resp B/P (MAP) Pulse Ox O2 Delivery O2 Flow Rate FiO2 06/13/17 16:26 98.6 78 15 112/68 (83) 97 Orders Orders Ed Discharge Order (06/13/17 17:08) [facility] Medical Decision Making Medical Screen Exam Complete: Yes Emergency Medical Condition: Yes Medical Record Reviewed: Yes Differential Diagnosis Sinusitis, URI, viral illness, pharyngitis Narrative Course 27-year-old female with nonspecific URI. She has been sick for one week. She is afebrile and nontoxic-appearing. Denies fever, vomiting. Physical exam is unremarkable. I will treat patient with antibiotics secondary to length of illness. Patient allergic to amoxicillin. Azithromycin and Nasonex nasal spray prescribed for home. Instructed patient to follow up with primary care provider. Patient verbalizes understanding and agreement with treatment plan. Patient is medically cleared and stable for discharge. Discussed reasons to return to the emergency department. Patient agrees with treatment plan. The patients vital signs are stable and the patient is stable for outpatient follow- up and treatment. Patient discharged home, stable and in no acute distress. Diagnosis Primary Impression: URI (upper respiratory infection) Qualified Codes: J06.9 - Acute upper respiratory infection, unspecified Referrals: [facility] Primary Care Physician Patient Instructions: General Instructions, Safe Use of Cough and Cold Medicines (ED), Upper Respiratory Infection (ED) Departure Forms: Tests/Procedures, Work Release Enter return to work date: Jun 15, 2017 Additional Instructions: Antibiotics as prescribed and complete full course Ibuprofen or Tylenol as instructed and as needed for fever/pain [id number] cough and cold medications as directed and as needed for symptom management Get plenty of sleep/rest Drink plenty of fluids to prevent dehydration; popsicles and Gatorade Use an air humidifier/turn off ceiling fans Follow-up with primary care provider Return immediately to the emergency department with worsening of symptoms Med/Other Pt SpecificInfo: Prescription(s) given Scripts Mometasone Nasal [place] (Nasonex Nasal [place]) 50 Mcg/Act Naspr 2 SPRAY EACH NARE DAILY Y for NASAL CONGESTION, #1 BOTTLE 0 Refills Prov: Destiny Shi 06/13/17 Azithromycin (Azithromycin) 250 Mg Tab 250 MG PO DIRECTED for Infection, #6 TAB 0 Refills Take 2 tabs (500 mg) on day 1 then 1 tab daily x 4 days. Prov: Destiny Shi 06/13/17 Disposition: 01 DISCHARGE HOME Condition: Stable Destiny Shi Jun 13, 2017 17:10
== END 2017-06-13 17:48 | disposition home or self-care (01) ==
LOC: NEPK 16:25
DX: J06.9 Acute upper respiratory infection, unspecified (principal); R51 Headache; I48.91 Unspecified atrial fibrillation; Z79.01 Long term (current) use of anticoagulants; F31.9 Bipolar disorder, unspecified; F41.9 Anxiety disorder, unspecified; G40.909 Epilepsy, unspecified, not intractable, without status epilepticus; F17.210 Nicotine dependence, cigarettes, uncomplicated; Z79.899 Other long term (current) drug therapy
CPT/HCPCS: 99283

== ENCOUNTER 2017-07-21 12:04 | Emergency (ER) | payer MEDICAID ==
[~2017-07-21 12:04] MED LIST changes: +AZIT250T3 PO; +MOME17I EACH NARE
[2017-07-21 12:06] VITALS: BP 118/64; PULSE 79; RESP 18; TEMP 97.7; O2SAT 98
[2017-07-21] MEDS ORDERED: SODIUM CHLOR 0.9% 1000 ML INJ 1,000 ML IV SCH (12:36)
--- NOTE | 2017-07-21 12:37 | PD ---
HPI Chief Complaint: GI Complaint Time Seen by Provider: 12:32 Travel History International Travel<30 days: No Contact w/Intl Traveler<30days: No Traveled to known affect area: No History of Present Illness HPI 27 year-old woman presents emergency department complaining of abdominal pain. States her son was sick with nausea vomiting diarrhea couple weeks ago. She had similar symptoms for about a week. Her diarrhea is mostly resolved, but she still is nausea, and now is having diffuse severe abdominal pain. She states she is a history of similar symptoms earlier and was diagnosed with a GI infection. She feels like she may be dehydrated. No fevers. Decreased urination. No other complaints. No history of abdominal surgery. History Past Medical History Narrative Medical Mental health problems Tetanus Vaccination: < 5 Years : 1 Para: 1 Social History Alcohol Use: Yes (weekly) Tobacco Use: Yes (4 cigarettes per day) Allergies-Medications (Allergen,Severity, Reaction): Coded Allergies: amoxicillin (Unverified Adverse Reaction, Mild, vomiting, 07/21/17) Reported Meds & Prescriptions Reported Meds & Active Scripts Active Reported Depakote ER (Divalproex Sodium) 250 Mg Bridgett 250 Mg PO DAILY Depakote ER (Divalproex Sodium) 500 Mg [place] 500 Mg PO HS Clonazepam 0.5 Mg Tab 0.5 Mg PO BID Review of Systems Except as stated in HPI: all other systems reviewed are Neg Physical Exam Narrative GENERAL: Well-appearing 19 year-old woman, no acute distress. SKIN: Focused skin assessment warm/dry. HEAD: Atraumatic. Normocephalic. EYES: Pupils equal and round. No scleral icterus. No injection or drainage. ENT: No nasal bleeding or discharge. Mucous membranes pink and moist. NECK: Trachea midline. No JVD. CARDIOVASCULAR: Regular rate and rhythm. No murmur appreciated. RESPIRATORY: No accessory muscle use. Clear to auscultation. Breath sounds equal bilaterally. GASTROINTESTINAL: Abdomen is obese and soft. There is minimal lower abdominal tenderness palpation bilaterally. No rebound or guarding. MUSCULOSKELETAL: No obvious deformities. No clubbing. No cyanosis. No edema. NEUROLOGICAL: Awake and alert. No obvious cranial nerve deficits. Motor grossly within normal limits. Normal speech. PSYCHIATRIC: Appropriate mood and affect; insight and judgment normal. Data Data Last Documented VS Vital Signs Date Time Temp Pulse Resp B/P (MAP) Pulse Ox O2 Delivery O2 Flow Rate FiO2 07/21/17 12:06 97.7 79 18 118/64 (82) 98 Room Air Orders Orders Complete Blood Count With Diff (07/21/17 12:36) Comprehensive Metabolic Panel (07/21/17 12:36) Lipase (07/21/17 12:36) Urinalysis - C+S If Indicated (07/21/17 12:36) Iv Access Insert/Monitor (07/21/17 12:36) Ecg Monitoring (07/21/17 12:36) Oximetry (07/21/17 12:36) Ondansetron Inj (Zofran Inj) (07/21/17 12:45) Sodium Chlor 0.9% 1000 Ml Inj (Ns 1000 M (07/21/17 12:36) Sodium Chloride 0.9% Flush (Ns Flush) (07/21/17 12:45) Dicyclomine Inj (Bentyl Inj) (07/21/17 12:45) Ed Urine Pregnancytest Poc (07/21/17 12:36) MDM Medical Decision Making Medical Screen Exam Complete: Yes Emergency Medical Condition: Yes Differential Diagnosis Gastroenteritis, cramping, UTI, appendicitis, enteritis, obstruction, other Narrative Course Medical decision making Is a 27 year-old woman presents emergency department complaining of nausea by diarrhea and now some abdominal pain. She is a benign abdominal exam. She had a CT scan in October of this year that was negative for similar symptoms. We'll check labs, IV fluid hydration, avoid opiates, recommend supportive treatment with Zofran, Bentyl if needed. Likely discharge. Casey Bashir MD Jul 21, 2017 12:37
[2017-07-21] MEDS ORDERED: ONDANSETRON HCL 4 MG/2 ML VIAL IVP ONE (12:45)
[2017-07-21] MEDS ORDERED: DICYCLOMINE HCL 20 MG/2 ML VIAL IM ONE (12:45)
[2017-07-21] MEDS ORDERED: SODIUM CHLORIDE 0.9% FLUSH 10 ML FLUSH IV FLUSH PRN (12:45)
--- NOTE | 2017-07-21 13:04 | PD ---
Physical Exam Date Seen by Provider: Jul 21, 2017 Time Seen by Provider: 13:02 Narrative 27-year-old female with complaints of abdominal pain and nausea for 2 weeks. Patient evaluated by Dr. Bashir in triage. Labs and medications are ordered. Patient is awaiting final disposition status post labs and medications. Please see Dr. Bashir's note. Data Data Last Documented VS Vital Signs Date Time Temp Pulse Resp B/P (MAP) Pulse Ox O2 Delivery O2 Flow Rate FiO2 07/21/17 15:19 07/21/17 13:57 18 99 Room Air 07/21/17 12:06 97.7 79 Orders Orders Complete Blood Count With Diff (07/21/17 12:36) Comprehensive Metabolic Panel (07/21/17 12:36) Lipase (07/21/17 12:36) Urinalysis - C+S If Indicated (07/21/17 12:36) Iv Access Insert/Monitor (07/21/17 12:36) Ecg Monitoring (07/21/17 12:36) Oximetry (07/21/17 12:36) Ondansetron Inj (Zofran Inj) (07/21/17 12:45) Sodium Chlor 0.9% 1000 Ml Inj (Ns 1000 M (07/21/17 12:36) Sodium Chloride 0.9% Flush (Ns Flush) (07/21/17 12:45) Dicyclomine Inj (Bentyl Inj) (07/21/17 12:45) Ed Urine Pregnancytest Poc (07/21/17 12:36) Ed Discharge Order (07/21/17 14:01) Ketorolac Inj (Toradol Inj) (07/21/17 14:30) Labs Laboratory Tests Test 07/21/17 13:14 07/21/17 13:15 White Blood Count 8.5 TH/MM3 Red Blood Count 4.33 MIL/MM3 Hemoglobin 14.1 GM/DL Hematocrit 41.7 % Mean Corpuscular Volume 96.3 FL Mean Corpuscular Hemoglobin 32.6 PG Mean Corpuscular Hemoglobin Concent 33.8 % Red Cell Distribution Width 12.6 % Platelet Count 251 TH/MM3 Mean Platelet Volume 7.5 FL Neutrophils (%) (Auto) 54.1 % Lymphocytes (%) (Auto) 34.5 % Monocytes (%) (Auto) 9.8 % Eosinophils (%) (Auto) 1.0 % Basophils (%) (Auto) 0.6 % Neutrophils # (Auto) 4.6 TH/MM3 Lymphocytes # (Auto) 2.9 TH/MM3 Monocytes # (Auto) 0.8 TH/MM3 Eosinophils # (Auto) 0.1 TH/MM3 Basophils # (Auto) 0.1 TH/MM3 CBC Comment DIFF FINAL Differential Comment Blood Urea Nitrogen 21 MG/DL Creatinine 0.73 MG/DL Random Glucose 75 MG/DL Total Protein 6.7 GM/DL Albumin 3.4 GM/DL Calcium Level 8.6 MG/DL Alkaline Phosphatase 55 U/L Aspartate Amino Transf (AST/SGOT) 9 U/L Alanine Aminotransferase (ALT/SGPT) 23 U/L Total Bilirubin 0.4 MG/DL Sodium Level 140 MEQ/L Potassium Level 3.8 MEQ/L Chloride Level 105 MEQ/L Carbon Dioxide Level 28.9 MEQ/L Anion Gap 6 MEQ/L Estimat Glomerular Filtration Rate 95 ML/MIN Lipase 258 U/L Urine Color YELLOW Urine Turbidity CLEAR Urine pH 6.5 Urine Specific [place] 1.020 Urine Protein NEG mg/dL Urine Glucose (UA) NEG mg/dL Urine Ketones NEG mg/dL Urine Occult Blood NEG Urine Nitrite NEG Urine Bilirubin NEG Urine Urobilinogen LESS THAN 2.0 MG/DL Urine Leukocyte Esterase NEG Urine RBC LESS THAN 1 /hpf Urine WBC 1 /hpf Urine Squamous Epithelial Cells 1 /hpf Microscopic Urinalysis Comment CULT NOT INDICATED MDM Medical Record Reviewed: Yes Supervised Visit with ALBA: Yes Narrative Course CBC is unremarkable. Urinalysis is unremarkable. CMP is within normal limits. Diagnosis Primary Impression: Abdominal pain Qualified Codes: R10.84 - Generalized abdominal pain Referrals: Primary Care Physician Patient Instructions: Abdominal Pain (ED), General Instructions Additional Instruction: Labs are all negative at this time. Patient is given Bentyl 10 mg up to 3 times a day when necessary abdominal pain. Patient also given Zofran 4 mg every 6 hours when necessary nausea #20. Patient is to rest and push fluids and follow with her primary care physician or return to emergency Department with worsening symptoms as needed. Scripts Dicyclomine (Bentyl) 10 Mg Cap 10 MG PO TID Y for Bowel Management, #15 CAP 0 Refills Prov: Casey Bashir MD 07/21/17 Ondansetron (Zofran) 4 Mg Tab 4 MG PO Q6HR Y for NAUSEA OR VOMITING, #20 TAB 0 Refills Prov: Casey Bashir MD 07/21/17 Disposition: 01 DISCHARGE HOME Condition: Stable Khanh Ulloa Jul 21, 2017 13:04
[2017-07-21 13:30] LABS: AUTOMATED NEUTROPHIL # 4.6 TH/MM3 (1.8-7.7); BASOPHIL # 0.1 TH/MM3 (0-0.2); BASOPHIL % 0.6 % (0.0-2.0); EOSINOPHIL # 0.1 TH/MM3 (0-0.4); HEMATOCRIT 41.7 % (35.0-46.0); HEMO FLAGS DIFF FINAL; LYMPH % 34.5 % (9.0-44.0); LYMPHOCYTE # 2.9 TH/MM3 (1.0-4.8); MEAN CELL VOLUME 96.3 FL (80.0-100.0); MEAN CORPUSCULAR HEMOGLOBIN 32.6 PG (27.0-34.0); MEAN CORPUSCULAR HGB CONC 33.8 % (32.0-36.0); MONO % 9.8 % (0.0-8.0); NEUT % 54.1 % (16.0-70.0); PLATELET COUNT 251 TH/MM3 (150-450); RED BLOOD COUNT 4.33 MIL/MM3 (4.00-5.30); RED CELL DISTRIBUTION WIDTH 12.6 % (11.6-17.2); WHITE BLOOD COUNT 8.5 TH/MM3 (4.0-11.0)
[2017-07-21 13:37] LABS: BLOOD, URINE NEG (NEG); GLUCOSE,URINE NEG (NEG); KETONE, URINE NEG (NEG); NITRITE,URINE NEG (NEG); PH, URINE 6.5 (5.0-8.5); SQUAMOUS EPITHELIAL CELL URINE 1 /hpf (0-5); URINE COLOR YELLOW (YELLW/STRAW)
[2017-07-21 13:39] LABS: COMMENT (UR) CULT NOT INDICATED; CULTURE IF INDICATED CULT NOT INDICATED
[2017-07-21 13:48] LABS: ALT (GPT) 23 U/L (10-53); ANION GAP 6 MEQ/L (5-15); AST (GOT) 9 U/L (15-37); BICARBONATE 28.9 MEQ/L (21.0-32.0); BLOOD UREA NITROGEN 21 MG/DL (7-18); CHLORIDE 105 MEQ/L (98-107); GLOMERULAR FILTRATION RATE 95 ML/MIN (>89); POTASSIUM 3.8 MEQ/L (3.5-5.1); SODIUM (NA) 140 MEQ/L (136-145)
[2017-07-21 13:51] LABS: ALKALINE PHOSPHATASE 55 U/L (45-117); TOTAL BILIRUBIN ADULT 0.4 MG/DL (0.2-1.0)
[2017-07-21 13:57] VITALS: RESP 18; O2SAT 99
[2017-07-21] MEDS ORDERED: DICY10 PO (13:58)
[2017-07-21] MEDS ORDERED: ZOFR4TAB PO (13:58)
[2017-07-21] MEDS ORDERED: KETOROLAC TROMETHAMINE 30 MG/ML (IVP) VIAL IV PUSH ONE (14:30)
== END 2017-07-21 15:20 | disposition home or self-care (01) ==
LOC: NEPD 12:04
DX: R10.84 Generalized abdominal pain (principal); R11.0 Nausea; R19.7 Diarrhea, unspecified; F17.210 Nicotine dependence, cigarettes, uncomplicated; Z79.899 Other long term (current) drug therapy; Z88.0 Allergy status to penicillin
CPT/HCPCS: 80053; 81001; 83690; 84703; 85025; 96361; 96372; 96374; 96375; 99284; J0500; J1885; J2405; J7030

== ENCOUNTER 2017-11-01 12:06 | Emergency (ER) | payer MEDICAID, OTHER ==
[~2017-11-01] VITALS: Ht 162.6 cm; Wt 82.0 kg
[~2017-11-01 12:06] MED LIST changes: -AZIT250T3 PO; +DICY10 PO; -DOXY100C PO; -FLUT1SPR5 EACH NARE; +JOLI0.35 PO; -METR250 PO; -MOME17I EACH NARE; +ZOFR4TAB PO; -ZOFR4TAB3 SL; -ZYRT10CA PO
[2017-11-01 12:14] VITALS: BP 111/59; PULSE 79; RESP 18; TEMP 98; O2SAT 98
[2017-11-01 12:20] VITALS: BP 111/59; PULSE 89; RESP 18; TEMP 98; O2SAT 99
[2017-11-01] MEDS ORDERED: SODIUM CHLOR 0.9% 1000 ML INJ 1,000 ML IV SCH (12:51)
[2017-11-01] MEDS ORDERED: ONDANSETRON HCL 4 MG/2 ML VIAL IVP ONE (13:00)
[2017-11-01] MEDS ORDERED: SODIUM CHLORIDE 0.9% FLUSH 10 ML FLUSH IV FLUSH PRN (13:00)
[2017-11-01 13:14] LABS: AUTOMATED NEUTROPHIL # 10.4 TH/MM3 (1.8-7.7); BASOPHIL % 0.1 % (0.0-2.0); EOSINOPHIL % 0.3 % (0.0-4.0); HEMATOCRIT 39.7 % (35.0-46.0); HEMOGLOBIN 13.9 GM/DL (11.6-15.3); LYMPH % 6.4 % (9.0-44.0); LYMPHOCYTE # 0.7 TH/MM3 (1.0-4.8); MEAN CELL VOLUME 93.3 FL (80.0-100.0); MEAN CORPUSCULAR HEMOGLOBIN 32.6 PG (27.0-34.0); MEAN PLATELET VOLUME 7.5 FL (7.0-11.0); MONO % 3.6 % (0.0-8.0); MONOCYTE # 0.4 TH/MM3 (0-0.9); NEUT % 89.6 % (16.0-70.0); PLATELET COUNT 279 TH/MM3 (150-450); RED BLOOD COUNT 4.25 MIL/MM3 (4.00-5.30); RED CELL DISTRIBUTION WIDTH 12.1 % (11.6-17.2); WHITE BLOOD COUNT 11.6 TH/MM3 (4.0-11.0)
[2017-11-01 13:19] LABS: BACTERIA, URINE RARE /hpf; BILIRUBIN, URINE NEG (NEG); BLOOD, URINE NEG (NEG); GLUCOSE,URINE NEG (NEG); KETONE, URINE 40 mg/dL (NEG); NITRITE,URINE NEG (NEG); PH, URINE 7.5 (5.0-8.5); SQUAMOUS EPITHELIAL CELL URINE 14 /hpf (0-5); TRANSITIONAL EPI CELLS, URINE <1 /hpf; URINE COLOR YELLOW (YELLW/STRAW); URINE LEUKOCYTE ESTERASE MOD (NEG)
[2017-11-01 13:34] LABS: ALBUMIN 3.1 GM/DL (3.4-5.0); ALT (GPT) 16 U/L (10-53); AST (GOT) 18 U/L (15-37); BICARBONATE 22.9 MEQ/L (21.0-32.0); BLOOD UREA NITROGEN 8 MG/DL (7-18); CALCIUM 7.7 MG/DL (8.5-10.1); CHLORIDE 103 MEQ/L (98-107); CREATININE 0.53 MG/DL (0.50-1.00); GLOMERULAR FILTRATION RATE 137 ML/MIN (>89); GLUCOSE,RANDOM 78 MG/DL (74-106); SODIUM (NA) 135 MEQ/L (136-145)
--- NOTE | 2017-11-01 13:50 | PD ---
HPI Chief Complaint: Cold / Flu Symptoms Time Seen by Provider: 12:23 Travel History International Travel<30 days: No Contact w/Intl Traveler<30days: No Traveled to known affect area: No History of Present Illness HPI 27-year-old female, approximately 10-12 weeks , presents to the emergency department with complaint of generalized abdominal pain, vomiting, diarrhea that started last night. Reports subjective fever last night. Denies vaginal bleeding, vaginal leakage, abnormal vaginal discharge. Denies dysuria. Denies hematemesis or hematochezia. She does not know when her last menstrual period was. Her significant other and her son are both sick with vomiting and diarrhea also. She has not taken any medications or tried any treatments to alleviate her symptoms. She has not had anything to eat or drink since she last vomited at approximately 11 AM. Rates abdominal pain 3/10. Received Zofran from EMS and said it made her abdominal pain go down to a 1/10. Describes abdominal pain as a cramping, burning, aching sensation. Primary care provider is Dr. euceda. She does not have an manager hris at this time. Allergies to amoxicillin. Denies significant past medical history. Has no other medical complaints. No other modifying factors or associated signs and symptoms. PFSH Past Medical History Asthma: No Atrial Fibrillation: Yes Blood Disorders: No Bipolar Disorder: Yes Anxiety: Yes Depression: Yes Heart Rhythm Problems: No Cancer: No Cardiovascular Problems: No High Cholesterol: No Chemotherapy: No Chest Pain: No Congestive Heart Failure: No COPD: No Diabetes: No Diminished Hearing: No Gastrointestinal Disorders: Yes Genitourinary: No Hypertension: No Immune Disorder: No Implanted Vascular Access Dvce: No Musculoskeletal: No Neurologic: Yes Psychiatric: Yes Reproductive: No Respiratory: No Integumentary: Yes (herpes) Immunizations Current: No Radiation Therapy: No Seizures: Yes Sleep Apnea: No Thyroid Disease: No ?: : 1 Para: 1 Miscarriage: 0 : 0 Past Surgical History Other Surgery: Yes (LEFT HAND ) Social History Alcohol Use: Yes (weekly) Tobacco Use: Yes (4 cigarettes per day) Substance Use: Yes (marijuana) Allergies-Medications (Allergen,Severity, Reaction): Coded Allergies: amoxicillin (Unverified Adverse Reaction, Mild, vomiting, 11/01/17) Reported Meds & Prescriptions Reported Meds & Active Scripts Active Macrobid (Nitrofurantoin Monoh/Nitrofur Macro) 100 Mg Cap 100 Mg PO BID 5 Days Zofran Odt (Ondansetron Odt) 4 Mg Tab 4 Mg SL Q8HR PRN Clonazepam 0.5 Mg Tab 0.5 Mg PO BID Acyclovir 400 Mg Tab 400 Mg PO TID Depakote ER (Divalproex Sodium) 250 Mg Bridgett 250 Mg PO DAILY Depakote ER (Divalproex Sodium) 500 Mg Bridgett 500 Mg PO HS Jolivette-35 (Norethindrone) 0.35 Mg Tab 1 Tab PO DAILY Bentyl (Dicyclomine HCl) 10 Mg Cap 10 Mg PO TID PRN Zofran (Ondansetron HCl) 4 Mg Tab 4 Mg PO Q6HR PRN Review of Systems Except as stated in HPI: all other systems reviewed are Neg Physical Exam Narrative GENERAL: Well-nourished, well-developed female patient, in no acute distress; afebrile SKIN: Warm and dry. HEAD: Atraumatic. Normocephalic. EYES: Pupils equal and round. No scleral icterus. No injection or drainage. ENT: Mucosa pink and moist. Airway patent. NECK: Trachea midline. CARDIOVASCULAR: Regular rate and rhythm. No murmur appreciated. RESPIRATORY: No accessory muscle use. Clear to auscultation. Breath sounds equal bilaterally. GASTROINTESTINAL: Abdomen soft, tenderness on palpation to all quadrants, nondistended. Hepatic and splenic margins not palpable. Bowel sounds are active 4 quadrants. Nonrigid. No rebound tenderness. No guarding. BACK: No CVA tenderness. MUSCULOSKELETAL: No obvious deformities. No clubbing. No cyanosis. No edema. NEUROLOGICAL: Awake and alert. Oriented 3. No obvious cranial nerve deficits. Motor grossly within normal limits. Normal speech. PSYCHIATRIC: Appropriate mood and affect; insight and judgment normal. Data Data Last Documented VS Vital Signs Date Time Temp Pulse Resp B/P (MAP) Pulse Ox O2 Delivery O2 Flow Rate FiO2 11/01/17 16:48 11/01/17 12:20 98.0 89 18 99 Room Air Orders Orders Beta Hcg (Quant/Titer) (11/01/17 12:51) Complete Blood Count With Diff (11/01/17 12:51) Comprehensive Metabolic Panel (11/01/17 12:51) Urinalysis - C+S If Indicated (11/01/17 12:51) Iv Access Insert/Monitor (11/01/17 12:51) Oximetry (11/01/17 12:51) Ondansetron Inj (Zofran Inj) (11/01/17 13:00) Sodium Chlor 0.9% 1000 Ml Inj (Ns 1000 M (11/01/17 12:51) Sodium Chloride 0.9% Flush (Ns Flush) (11/01/17 13:00) Potassium Chloride (Kcl) (11/01/17 14:00) Ed Poc Ultrasound (11/01/17 15:43) Calcium Carbonate Chew (Tums Chew) (11/01/17 15:45) Ed Discharge Order (11/01/17 16:36) Labs Laboratory Tests Test 11/01/17 12:58 White Blood Count 11.6 TH/MM3 Red Blood Count 4.25 MIL/MM3 Hemoglobin 13.9 GM/DL Hematocrit 39.7 % Mean Corpuscular Volume 93.3 FL Mean Corpuscular Hemoglobin 32.6 PG Mean Corpuscular Hemoglobin Concent 35.0 % Red Cell Distribution Width 12.1 % Platelet Count 279 TH/MM3 Mean Platelet Volume 7.5 FL Neutrophils (%) (Auto) 89.6 % Lymphocytes (%) (Auto) 6.4 % Monocytes (%) (Auto) 3.6 % Eosinophils (%) (Auto) 0.3 % Basophils (%) (Auto) 0.1 % Neutrophils # (Auto) 10.4 TH/MM3 Lymphocytes # (Auto) 0.7 TH/MM3 Monocytes # (Auto) 0.4 TH/MM3 Eosinophils # (Auto) 0.0 TH/MM3 Basophils # (Auto) 0.0 TH/MM3 CBC Comment DIFF FINAL Differential Comment Urine Color YELLOW Urine Turbidity HAZY Urine pH 7.5 Urine Specific [place] 1.016 Urine Protein TRACE mg/dL Urine Glucose (UA) NEG mg/dL Urine Ketones 40 mg/dL Urine Occult Blood NEG Urine Nitrite NEG Urine Bilirubin NEG Urine Urobilinogen LESS THAN 2.0 MG/DL Urine Leukocyte Esterase MOD Urine RBC 1 /hpf Urine WBC 3 /hpf Urine Squamous Epithelial Cells 14 /hpf Urine Transitional Epithelial Cells <1 /hpf Urine Bacteria RARE /hpf Microscopic Urinalysis Comment CULT NOT INDICATED Blood Urea Nitrogen 8 MG/DL Creatinine 0.53 MG/DL Random Glucose 78 MG/DL Total Protein 6.2 GM/DL Albumin 3.1 GM/DL Calcium Level 7.7 MG/DL Alkaline Phosphatase 43 U/L Aspartate Amino Transf (AST/SGOT) 18 U/L Alanine Aminotransferase (ALT/SGPT) 16 U/L Total Bilirubin 0.7 MG/DL Sodium Level 135 MEQ/L Potassium Level 3.2 MEQ/L Chloride Level 103 MEQ/L Carbon Dioxide Level 22.9 MEQ/L Anion Gap 9 MEQ/L Estimat Glomerular Filtration Rate 137 ML/MIN Human Chorionic Gonadotropin, Quant 197019 MIU/ML [facility] Medical Decision Making Medical Screen Exam Complete: Yes Emergency Medical Condition: Yes Medical Record Reviewed: Yes Differential Diagnosis Gastroenteritis, gastritis, UTI, Narrative Course 27-year-old female approximately 10-12 weeks , patient, with vomiting, diarrhea, and generalized abdominal pain. Others in her family are sick with similar symptoms denies vaginal or urinary symptoms 1351: CBC unremarkable. Potassium 3.2. Potassium 40 M EQ ordered. Urinalysis shows bacteriuria. I will prescribe Macrobid for home. 1542: Calcium 7.7. Chewable calcium 500mg ordered. Beta hCG [id number]. Patient still reports some abdominal discomfort and rates it 3/10. Denies nausea. Patient has tolerated drinking some water without continued vomiting. Patient given Gatorade. POC bedside ultrasound ordered. 1630: Dr. Knott performed bedside US and there is a twin with Twin A 154 bpm and Twin B 160 bpm. See her procedure note. Instructed patient to follow-up with manager hris. Patient provided information for [facility]'s care now. Zofran and Macrobid prescribed for home. Instructed patient to follow up with primary care provider. Patient verbalizes understanding and agreement with treatment plan. Patient is medically cleared and stable for discharge. Discussed reasons to return to the emergency department. Patient agrees with treatment plan. The patients vital signs are stable and the patient is stable for outpatient follow-up and treatment. Patient discharged home, stable and in no acute distress. 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 Primary Care Physician Patient Instructions: First Trimester (ED), Gastroenteritis (ED), General Instructions, Urinary Tract Infection in (ED) Additional Instructions: Antibiotics as prescribed for urinary tract infection Take Zofran as prescribed for nausea/vomiting Increase fluid intake, starting with clear fluids; advancing to a bland diet as tolerated [place] diet to include crackers, rice, toast, bananas as tolerated, advancing slowly to regular diet Follow-up primary care provider in next 1-2 days Follow-up with manager hris I have provided you with information for [facility] women's care now; call and make an appointment Return to emergency department immediately with worsening of symptoms Med/Other Pt SpecificInfo: Prescription(s) given Scripts Nitrofurantoin Monohydrate Macrocrystals (Macrobid) 100 Mg Cap 100 MG PO BID for Infection for 5 Days, #10 CAP 0 Refills Prov: Destiny Shi 11/01/17 Ondansetron Odt (Zofran Odt) 4 Mg Tab 4 MG SL Q8HR Y for Nausea/Vomiting, #6 TAB 0 Refills Prov: Destiny Shi 11/01/17 Disposition: 01 DISCHARGE HOME Condition: Stable Destiny Shi Nov 01, 2017 13:50
[2017-11-01] MEDS ORDERED: POTASSIUM CHLORIDE 20 MEQ CONTROLLED RELEASE TAB PO ONE (14:00)
[2017-11-01 14:05] LABS: ALKALINE PHOSPHATASE 43 U/L (45-117); TOTAL BILIRUBIN ADULT 0.7 MG/DL (0.2-1.0); TOTAL PROTEIN 6.2 GM/DL (6.4-8.2)
[2017-11-01] MEDS ORDERED: CALCIUM CARBONATE 500 MG CHEWABLE TAB CHEW ONE (15:45)
--- NOTE | 2017-11-01 16:31 | PD ---
Physical Exam Date Seen by Provider: Nov 01, 2017 Time Seen by Provider: 16:29 Narrative Patient was seen by my nurse that patient and supervising her. Patient knows that she is but does not know how far along. She has not seen an OB or had an ultrasound. She is having some pelvic pain but no vaginal bleeding. Fluids but the pain continues. I did a bedside ultrasound. Please refer to my procedure note. Patient will be discharged home. Data Data Last Documented VS Vital Signs Date Time Temp Pulse Resp B/P (MAP) Pulse Ox O2 Delivery O2 Flow Rate FiO2 11/01/17 16:48 11/01/17 12:20 98.0 89 18 99 Room Air Orders Orders Beta Hcg (Quant/Titer) (11/01/17 12:51) Complete Blood Count With Diff (11/01/17 12:51) Comprehensive Metabolic Panel (11/01/17 12:51) Urinalysis - C+S If Indicated (11/01/17 12:51) Iv Access Insert/Monitor (11/01/17 12:51) Oximetry (11/01/17 12:51) Ondansetron Inj (Zofran Inj) (11/01/17 13:00) Sodium Chlor 0.9% 1000 Ml Inj (Ns 1000 M (11/01/17 12:51) Sodium Chloride 0.9% Flush (Ns Flush) (11/01/17 13:00) Potassium Chloride (Kcl) (11/01/17 14:00) Ed Poc Ultrasound (11/01/17 15:43) Calcium Carbonate Chew (Tums Chew) (11/01/17 15:45) Ed Discharge Order (11/01/17 16:36) Labs Laboratory Tests Test 11/01/17 12:58 White Blood Count 11.6 TH/MM3 Red Blood Count 4.25 MIL/MM3 Hemoglobin 13.9 GM/DL Hematocrit 39.7 % Mean Corpuscular Volume 93.3 FL Mean Corpuscular Hemoglobin 32.6 PG Mean Corpuscular Hemoglobin Concent 35.0 % Red Cell Distribution Width 12.1 % Platelet Count 279 TH/MM3 Mean Platelet Volume 7.5 FL Neutrophils (%) (Auto) 89.6 % Lymphocytes (%) (Auto) 6.4 % Monocytes (%) (Auto) 3.6 % Eosinophils (%) (Auto) 0.3 % Basophils (%) (Auto) 0.1 % Neutrophils # (Auto) 10.4 TH/MM3 Lymphocytes # (Auto) 0.7 TH/MM3 Monocytes # (Auto) 0.4 TH/MM3 Eosinophils # (Auto) 0.0 TH/MM3 Basophils # (Auto) 0.0 TH/MM3 CBC Comment DIFF FINAL Differential Comment Urine Color YELLOW Urine Turbidity HAZY Urine pH 7.5 Urine Specific [place] 1.016 Urine Protein TRACE mg/dL Urine Glucose (UA) NEG mg/dL Urine Ketones 40 mg/dL Urine Occult Blood NEG Urine Nitrite NEG Urine Bilirubin NEG Urine Urobilinogen LESS THAN 2.0 MG/DL Urine Leukocyte Esterase MOD Urine RBC 1 /hpf Urine WBC 3 /hpf Urine Squamous Epithelial Cells 14 /hpf Urine Transitional Epithelial Cells <1 /hpf Urine Bacteria RARE /hpf Microscopic Urinalysis Comment CULT NOT INDICATED Blood Urea Nitrogen 8 MG/DL Creatinine 0.53 MG/DL Random Glucose 78 MG/DL Total Protein 6.2 GM/DL Albumin 3.1 GM/DL Calcium Level 7.7 MG/DL Alkaline Phosphatase 43 U/L Aspartate Amino Transf (AST/SGOT) 18 U/L Alanine Aminotransferase (ALT/SGPT) 16 U/L Total Bilirubin 0.7 MG/DL Sodium Level 135 MEQ/L Potassium Level 3.2 MEQ/L Chloride Level 103 MEQ/L Carbon Dioxide Level 22.9 MEQ/L Anion Gap 9 MEQ/L Estimat Glomerular Filtration Rate 137 ML/MIN Human Chorionic Gonadotropin, Quant [id number] MIU/ML MDM Supervised Visit with ALBA: Yes Procedures Procedure Narrative Emergency Department Pelvic ultrasound was performed with patient consent. The curvilinear probe was used in the transverse and sagittal views within the suprapubic region revealing twin live intrauterine . heart rate was a baby A had a heartbeat of 154 bpm and baby had a heart rate of 160 bpm. See this measures approximately 12 weeks. 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
[2017-11-01] MEDS ORDERED: ZOFR4TAB3 SL (16:37)
[2017-11-01] MEDS ORDERED: MACR100C2 PO (16:40)
== END 2017-11-01 16:49 | disposition home or self-care (01) ==
LOC: NEPD 12:06
DX: O99.611 Diseases of the digestive system complicating pregnancy, first trimester (principal); K52.9 Noninfective gastroenteritis and colitis, unspecified; R10.2 Pelvic and perineal pain; Z3A.12 12 weeks gestation of pregnancy
CPT/HCPCS: 80053; 81001; 84702; 85025; 96361; 96374; 99284; J2405; J7030

== ENCOUNTER → 2017-12-16 | Outpatient (CLI) | payer MEDICAID ==
[~2017-12-16] MED LIST changes: +MACR100C2 PO; +ZOFR4TAB3 SL
== END ==
LOC: HPND 08:46
PROVIDERS: ATTEND Obstetrics & Gynecology
DX: O99.322 Drug use complicating pregnancy, second trimester (principal); O30.032 Twin pregnancy, monochorionic/diamniotic, second trimester; O99.342 Other mental disorders complicating pregnancy, second trimester
CPT/HCPCS: 76811; 76812; 76817

== ENCOUNTER 2018-05-03 10:34 | Inpatient (IN) ==
[2018-05-03] MEDS ORDERED: Oxytocin 30 Units/500ml Premix 30 UNITS/500 ML BAG IV.SIG PRN (11:28)
[2018-05-03] MEDS ORDERED: Sodium Chlor 0.9% Inj 500 ML IV.SIG PRN (11:29)
[2018-05-03] MEDS ORDERED: Sod Chloride 0.9% Inj 1,000 ML IV.CONT PRN (11:29)
[2018-05-03] MEDS ORDERED: Naloxone Inj 0.4 MG/ML Vial IV.PUSH PRN (11:29)
[2018-05-03] MEDS ORDERED: fentaNYL Citrate Inj 100 MCG/2 ML Ampul IV.PUSH PRN ×2 (11:29)
[2018-05-03] MEDS ORDERED: Citric Acid/Sodium Citrate Liq 30 ML UDC PO SCH (11:30)
--- NOTE | 2018-05-03 11:38 | P.HPOB ---
History of Present Illness Primary Care Physician: No Primary Care Physician Chief Complaint: induction History of Present Illness: 27-year-old female at 37 weeks by 3 month ultrasound presents for induction of labor. She is with monochorionic diamniotic twins. Patient denies any chest pain or shortness of breath. She has noticed some contractions this morning about one an hour. She is having some yellow discharge but no burning or itching in the vaginal area. She has had no large loss of fluid. She is feeling the baby is moving. She had no complications this . She has had one previous that ended in a term vaginal delivery, and no complications with that . She has not received any steroids this . Her ultrasound last Thursday showed both babies head down. She was GBS negative according to chart review on April 07. She denies any past medical history. Takes clonazepam half a milligram at 7 AM and 12 PM. She also takes Ceclor over 4 oral and genital herpes. Her last break out was 4 months ago. She denies any drug or alcohol use. She smokes 3 cigarettes a day. Weeks Gestation:: 37 Para: 2 : 1 Total # of Miscarriage(s): 0 Total # of Abortions (Spontaneous & Elective): 0 - Inpatient Certification I certify that the inpatient services were ordered in accordance with Medicare regulations governing the order. This includes certification that hospital inpatient services are reasonable and necessary and in the case of services not specified as inpatient-only under 42 CFR 419.22(n), that they are appropriately provided as inpatient services in accordance to with the 2-midnight benchmark under 43 CFR 412.3(e) Estimated Total Length of Stay (Days): 4 Plans for Post Hospital Care: Home Review of Systems Constitutional: Denies chills, Denies fever(s) Cardiovascular: Denies chest pain Respiratory: Denies shortness of breath Genitourinary: Reports vaginal discharge, Denies genital itching, Denies genital lesions, Denies vaginal itching Musculoskeletal: Reports joint swelling PMFSH - Medical / Surgical Hx Neg / Unobtainable Medical Problems Denied: Yes - Tobacco History Smoking Status: Current some day smoker Tobacco Type: Cigarettes - Alcohol History How Often Do You Have a Drink Containing Alcohol: Never - Substance Use History Substance History: No History of Abuse Medications and Allergies Allergies Allergy/AdvReac Type Severity Reaction Status Date / Time amoxicillin AdvReac Severe vomiting, Verified 05/03/18 11:58 diarrhea, fever Home Medications Medication Instructions Recorded Confirmed Type acyclovir 400 mg PO TID 05/03/18 05/03/18 History clonazepam 0.5 mg PO BID 05/03/18 05/03/18 History prenat.vits,henny,cek-oorw-uqrox 1 tab PO DAILY 05/03/18 05/03/18 History [ Vitamin] Active Medications: Active Medications Citric Acid/Sodium Citrate (Sodium Citrate/Citric Acid Liq) 30 ml PO PROCESSING ANALYST [facility] Stop: 05/07/18 11:29 Fentanyl Citrate (Fentanyl Inj) 50 mcg IV.PUSH Q1H PRN PRN Reason: Pain Scale 3 - 5 Fentanyl Citrate (Fentanyl Inj) 100 mcg IV.PUSH Q1H PRN PRN Reason: PAIN SCALE 6 TO 10 Lactated Ringer's (Lr 1000 Ml Inj) 1,000 mls @ 125 mls/hr IV.CONT .Q8H ASHLEY Lactated Ringer's (Lr 1000 Ml Inj) 1,000 mls @ 3,000 mls/hr IV.SIG UNSCH PRN PRN Reason: compromise or epidural Sodium Chloride (Ns Inj) 500 mls @ 1,000 mls/hr IV.SIG UNSCH PRN PRN Reason: SEE LABEL COMMENTS Sodium Chloride (Ns Inj) 1,000 mls @ 100 mls/hr IV.CONT .Q10H PRN PRN Reason: SEE LABEL COMMENTS Oxytocin (Pitocin 30 Units/Ns 500 Ml Premix) 30 units in 500 mls @ 2 mls/hr IV.SIG TITRATE PRN; Protocol PRN Reason: For induction of labor Oxytocin (Pitocin 30 Units/Ns 500 Ml Premix) 30 units in 500 mls @ 999 mls/hr IV.SIG BOLUS ONE Stop: 05/03/18 11:59 Lidocaine HCl (Xylocaine 1% Inj) 0.1 ml I-DERMAL PRN PRN PRN Reason: For IV start Stop: 05/06/18 11:28 Lidocaine HCl (Xylocaine 1% Inj) 10 ml INFILTRATN PRN PRN PRN Reason: For episiotomy repair Stop: 05/05/18 11:28 Mineral Oil (Muri-Lube Oil) 10 ml TOPICAL PRN PRN PRN Reason: PRN perineal massage Naloxone HCl (Narcan Inj) 0.1 mg IV.PUSH Q2M PRN PRN Reason: for opiate reversal Exam Vital signs: Vital Signs 05/03/18 11:10 Pulse Rate 78 Respiratory Rate 17 Blood Pressure 119/72 Narrative: GENERAL: Well-nourished, well-developed patient. SKIN: Warm and dry. HEAD: Normocephalic and atraumatic. EYES: No scleral icterus. No injection or drainage. ENT: No nasal drainage noted. Mucous membranes pink. Airway patent. NECK: Supple, trachea midline. No JVD. CARDIOVASCULAR: Regular rate and rhythm without murmurs, gallops, or rubs. RESPIRATORY: Breath sounds equal bilaterally. No accessory muscle use. BREASTS: Bilateral exam showed no masses , no retractions, no nipple discharge. ABDOMEN/GI: Abdomen soft, non-tender, bowel sounds present, no rebound, no guarding GENITOURINARY: No lesions Cervix: posterior Dilatation: 4 Effacement: 60 Station: -3 Membranes: intact Uterine Contractions: one in 10 minutes of tracing FHT's: Category: 1 for both Baseline: 136 and 148 Reactive: yes for both Variability: moderate for both Decels: none EXTREMITIES: No cyanosis; 2+ pitting edema BACK: Nontender without obvious deformity. No CVA tenderness. NEUROLOGICAL: Awake and alert. Motor and sensory grossly within normal limits. Five out of 5 muscle strength in all muscle groups. Normal speech. Results - Labs CBC & Chem 7: 05/03/18 10:55 Caprini VTE Risk Assessment Caprini VTE Risk Assessment: Moderate/High Risk (score >= 2) Caprini Risk Assessment Model: Point Value = 1 Point Value = 2 Point Value = 3 Point Value = 5 Age 41-60 Minor surgery BMI > 25 kg/m2 Swollen legs Varicose veins or History of unexplained or recurrent spontaneous Oral contraceptives or hormone replacement Sepsis (< 1 month) Serious lung disease, including pneumonia (< 1 month) Abnormal pulmonary function Acute myocardial infarction Congestive heart failure (< 1 month) History of inflammatory bowel disease Medical patient at bed rest Age 61-74 Arthroscopic surgery Major open surgery (> 45 min) Laparoscopic surgery (> 45 min) Malignancy Confined to bed (> 72 hours) Immobilizing plaster cast Central venous access Age >= 75 History of VTE Family history of VTE Factor V Leiden Prothrombin 17730H Lupus anticoagulant Anticardiolipin antibodies Elevated serum homocysteine Heparin-induced thrombocytopenia Other congenital or acquired thrombophilia Stroke (< 1 month) Elective arthroplasty Hip, pelvis, or leg fracture Acute spinal cord injury (< 1 month) Prophylaxis Regimen: Total Risk Factor Score Risk Level Prophylaxis Regimen 0-1 Low Early ambulation 2 Moderate Order ONE of the following: *Sequential Compression Device (SCD) *Heparin 5000 units SQ BID 3-4 Higher Order ONE of the following medications: *Heparin 5000 units SQ TID *Enoxaparin/Lovenox 40 mg SQ daily (WT < 150 kg, CrCl > 30 mL/min) *Enoxaparin/Lovenox 30 mg SQ daily (WT < 150 kg, CrCl > 10-29 mL/min) *Enoxaparin/Lovenox 30 mg SQ BID (WT < 150 kg, CrCl > 30 mL/min) AND/OR *Sequential Compression Device (SCD) 5 or more Highest Order ONE of the following medications: *Heparin 5000 units SQ TID (Preferred with Epidurals) *Enoxaparin/Lovenox 40 mg SQ daily (WT < 150 kg, CrCl > 30 mL/min) *Enoxaparin/Lovenox 30 mg SQ daily (WT < 150 kg, CrCl > 10-29 mL/min) *Enoxaparin/Lovenox 30 mg SQ BID (WT < 150 kg, CrCl > 30 mL/min) AND *Sequential Compression Device (SCD) Assessment and Plan - Diagnosis (1) with 37 weeks completed gestation Code(s): Z3A.37 - 37 weeks gestation of Status: Acute Plan: 27-year-old female who presents at 27 weeks for induction of labor for twins. No complications with this . heart tracings category 1 reassuring for both both twins. Cervical check 4 cm, 60%, -3. GBS negative -Admit to labor and delivery - heart tracing -Administer oxytocin 2-2-30 -Currently hold home clonazepam until after delivery - Attending Attestation The exam, history, and the medical decision-making described in the above note were completed with the assistance of the resident physician. I reviewed and agree with the findings presented. I attest that I had a [id number] encounter with the patient on the same day, and personally performed and documented my assessment and findings in the medical record.
[2018-05-03 11:52] LABS: Baso % (Auto) 0.4 % (0.0-2.0); Eos # (Auto) 0.1 th/mm3 (0.0-0.4); Eos % (Auto) 1.3 % (0.0-4.0); Hematocrit 36.2 % (35.0-46.0); Hemoglobin 12.2 gm/dL (11.6-15.3); Lymph # (Auto) 1.8 th/mm3 (1.0-4.8); Lymph % (Auto) 17.4 % (9.0-44.0); Mean Corpuscular HGB Conc 33.8 % (32.0-36.0); Mean Corpuscular Hemoglobin 31.7 pg (27.0-34.0); Mean Corpuscular Volume 93.9 fL (80.0-100.0); Mean Platelet Volume 9.6 fL (7.0-11.0); Mono # (Auto) 0.8 th/mm3 (0.0-0.9); Mono % (Auto) 8.1 % (0.0-8.0); Neut # (Auto) 7.6 th/mm3 (1.8-7.7); Neut % (Auto) 72.8 % (16.0-70.0); Platelet Count 264 th/mm3 (150-450); Red Blood Count 3.86 mil/mm3 (4.00-5.30); Red Cell Distribution Width 13.8 % (11.6-17.2); White Blood Count 10.4 th/mm3 (4.0-11.0)
[2018-05-03 11:59] LABS: Bacteria,Urine Rare /hpf; Bilirubin,Urine Negative (Negative); Clarity,Urine Clear (Clear); Color,Urine Yellow (Yellw/Straw); Glucose,Urine (UA) Negative (Negative); Leukocyte Esterase,Urine Small (Negative); Mucus,Urine Few /lpf (Occasional); Nitrite,Urine Negative (Negative); Squamous Epithelial Cell,Urine 7 /hpf (0-5)
[2018-05-03] MEDS ORDERED: Oxytocin 30 Units/500ml Premix 30 UNITS/500 ML BAG IV.SIG ONE (12:00)
[2018-05-03 12:01] LABS: Amphetamine Urine With Conf Neg (Neg); Benzodiazepine Urine With Conf Neg (Neg)
[2018-05-03] MEDS: Acyclovir 200 MG Capsule PO SCH ×2 (13:57→17:59)
--- NOTE | 2018-05-03 15:22 | P.OBLABOR ---
Subjective Interval history: Patient has no complaints. Contractions becoming more frequent. Objective Vital Signs: Vital Signs - 8 hr 05/03/18 11:10 05/03/18 12:25 05/03/18 12:26 Temperature Pulse Rate 78 71 Respiratory Rate 17 18 Blood Pressure 119/72 121/77 05/03/18 12:27 05/03/18 13:30 Temperature 98.7 F Pulse Rate 70 Respiratory Rate Blood Pressure 116/67 Objective: Pelvic Exam: Cervix: posterior Dilatation: 3 Effacement: 70 Station: -3 Presentation: vertex Membranes: intact Uterine Contractions: 5 min FHT's: Category: 1 Baseline: 140 and 145 Reactive: yes Variability: moderate Decels: no Weeks Gestation: 37 Patient Started Active Labor: No Medical Induction of Labor: Yes Assessment and Plan - Diagnosis (1) with 37 weeks completed gestation Code(s): Z3A.37 - 37 weeks gestation of Status: Acute Plan: 27-year-old female who presents at 27 weeks for induction of labor for twins. No complications with this . heart tracings category 1 reassuring for both both twins. GBS negative -Cervical check 3 cm, 70%, -3 -contractions every 5 minutes - heart tracing -Administer oxytocin 2-2-30; currently increased to 10 -Currently hold home clonazepam until after delivery - Attending Attestation The exam, history, and the medical decision-making described in the above note were completed with the assistance of the resident physician. I reviewed and agree with the findings presented. I attest that I had a [id number] encounter with the patient on the same day, and personally performed and documented my assessment and findings in the medical record.
[2018-05-03] MEDS ORDERED: fentaNYL 2MCG-Bupiv 0.125% Epi 150 ML EPIDURAL ONE (16:54)
[2018-05-03] MEDS ORDERED: Lidocaaine 1.5%/Epinephrine 1:200,000 PF Inj 5 ML Amp ONE (17:12)
[2018-05-03] MEDS ORDERED: Lidocaine PF 1% Inj 5 ML Vial ONE (17:12)
[2018-05-03] MEDS: fentaNYL 2MCG-Bupiv 0.125% Epi 150 ML EPIDURAL PRN (17:28)
[2018-05-03] MEDS ORDERED: fentaNYL Citrate Inj 100 MCG/2 ML Ampul EPIDURAL ONE (18:36)
[2018-05-03] MEDS ORDERED: Methylergonovine Inj 0.2 MG/ML Ampul ONE (20:29)
[2018-05-04] MEDS: fentaNYL 2MCG-Bupiv 0.125% Epi 150 ML EPIDURAL PRN (02:57)
[2018-05-04] MEDS ORDERED: Witch Hazel 50%/Glyderin 12.5% 40 Pad Jar RECTAL PRN (08:25)
[2018-05-04] MEDS ORDERED: Zolpidem Tartrate 5 MG Tablet PO PRN (08:25)
[2018-05-04] MEDS ORDERED: Acetaminophen 325 MG Tablet PO PRN (08:25)
[2018-05-04] MEDS ORDERED: Benzocaine 20% Top Spray 60 ML Can TOPICAL PRN (08:25)
[2018-05-04] MEDS ORDERED: Naloxone Inj 0.4 MG/ML Vial IV.PUSH PRN (08:25)
[2018-05-04] MEDS ORDERED: Bisacodyl 10 MG Supp RECTAL PRN (08:25)
[2018-05-04] MEDS ORDERED: Oxytocin 30 Units/500ml Premix 30 UNITS/500 ML BAG IV.CONT PRN (08:25)
--- NOTE | 2018-05-04 08:25 | P.OBDELI ---
Weeks Gestation: 37 Patient Started Active Labor: Yes Active Labor Start Date: 05/03/18 Active Labor Start Time: 23:45 Medical Induction of Labor: Yes Medical Induction Start Date: 05/03/18 Medical Induction Start Time: 12:00 Artificial Rupture of Membrane: Yes (Clear) Anesthesia: Epidural Episiotomy: none Vaginal Delivery: Spontaneous Presentation: Occiput anterior Nuchal Cord: None Delayed Cord Clamping (45 sec): Yes Placenta: Spontaneous delivery, Intact : Female, Multiple Additional Information: The patient was taken to the back for double set up when she was anterior lip. Amniotomy was performed and clear fluid noted. The patient pushed effectively to deliver the OA vertex over an intact perineum. The shoulders delivered rapidly by maternal effort and the infant was passed to maternal abdomen were delayed cord clamping was accomplished. Ultrasound was used to immediately tract the heart rate of twin B which descended as a vertex. Amniotomy again produce clear fluid. With 1 push the vertex was expelled and the remainder the followed easily. Delayed cord clamping was accomplished. With IV Pitocin solution and fundal massage the placenta passed spontaneously. It was grossly normal and apparently intact. Hemostasis was obtained with IV Pitocin solution and massage. Quantitative blood loss was 200 cc. A right labial second-degree laceration was reapproximated with 2-0 chromic. No complications.
[2018-05-04] MEDS: Acyclovir 200 MG Capsule PO SCH ×3 (08:36→21:17)
[2018-05-04] MEDS ORDERED: Methylergonovine Inj 0.2 MG/ML Ampul ONE (08:49)
[2018-05-04] MEDS ORDERED: Methylergonovine Inj 0.2 MG/ML Ampul IM ONE (08:51)
[2018-05-04] MEDS: Senna/Docusate Sodium 8.6/50 MG Tablet PO SCH ×2 (09:05→21:17)
[2018-05-04] MEDS: clonazePAM 0.5 MG Tablet PO SCH ×2 (09:41→14:42)
[2018-05-04] MEDS ORDERED: Diphtheria/Tetanus/Pertussis Vaccine Inj 0.5 ML Syringe IM ONE (16:00)
[2018-05-04] MEDS ORDERED: Measles/Mumps/Rubella Vaccine Inj 0.5 ML Vial SQ ONE (16:00)
[2018-05-04] MEDS: Ibuprofen 400 MG Tablet PO PRN (20:02)
[2018-05-05] MEDS: Ibuprofen 400 MG Tablet PO PRN ×3 (04:32→22:01)
[2018-05-05 06:52] VITALS: O2SAT 100
[2018-05-05] MEDS: Acyclovir 200 MG Capsule PO SCH ×3 (08:04→19:33)
[2018-05-05] MEDS: Senna/Docusate Sodium 8.6/50 MG Tablet PO SCH ×2 (08:04→22:01)
[2018-05-05] MEDS: clonazePAM 0.5 MG Tablet PO SCH ×2 (08:05→14:22)
--- NOTE | 2018-05-05 08:23 | P.PNOB ---
Subjective Interval history: Patient seen and examined this morning. She is a 27-year-old L3 delivered at 37+1 weeks. Patient is day 1 after . Patient's pain is well- controlled. Patient reports eating and drinking. She complains of some nausea or vomiting. Patient reports minimal bleeding. Patient has passed gas but no bowel movements. Patient is walking without lower extremity pain or shortness of breath. Patient reports desire for contraception with the Mirena and is breast-feeding. Objective Vital Signs/I&O: Vital Signs 05/04/18 11:00 05/04/18 15:25 05/04/18 20:00 Temperature 98.6 F 97.6 F 98.0 F Pulse Rate 78 45 L 58 L Respiratory Rate 20 20 18 Blood Pressure 131/78 137/84 126/84 Pulse Oximetry 05/05/18 06:45 05/05/18 07:00 Temperature 97.7 F 97.7 F Pulse Rate 48 L 48 L Respiratory Rate 16 16 Blood Pressure 121/80 121/80 Pulse Oximetry 100 Intake & Output 05/04/18 05/05/18 05/05/18 18:59 06:59 18:59 Intake Total Balance Intake: Other Rho(D) Immune Globulin Unit [id number] Intake (Blood Product) Amt 0 / 0 Rho(D) Immune Globulin Unit 0 / 0 [id number] Result Diagrams: 05/03/18 10:55 Objective Remarks: GENERAL: Well-nourished, well-developed patient. CARDIOVASCULAR: Regular rate and rhythm without murmurs, gallops, or rubs. RESPIRATORY: Breath sounds equal bilaterally. No accessory muscle use. ABDOMEN/GI: Abdomen soft, non-tender. Fundus: Firm, non-tender above the umbilicus. GENITOURINARY: Light to moderate bleeding. EXTREMITIES: No cyanosis or edema, non-tender, without signs of DVT. Medications and IVs: Active Medications Acetaminophen (Tylenol) 650 mg PO Q4H PRN PRN Reason: PAIN SCALE 1 TO 2 Acyclovir (Zovirax) 400 mg PO TID ASHLEY Last Admin: 05/05/18 08:04 Dose: 400 mg Al Hydroxide/Mg Hydroxide (Milk Of Magnesia Liq) 30 ml PO Q12H PRN PRN Reason: Mild Constipation Benzocaine (Americaine 20% Top [place]) 1 spray TOPICAL Q4H PRN PRN Reason: For Perineum Discomfort Last Admin: 05/04/18 11:09 Dose: 1 spray Bisacodyl (Dulcolax Supp) 10 mg RECTAL DAILY PRN PRN Reason: SEVERE CONSITIPATION Citric Acid/Sodium Citrate (Sodium Citrate/Citric Acid Liq) 30 ml PO BDC MANAGER [facility] Stop: 05/07/18 11:29 Clonazepam (Klonopin) 0.5 mg PO BID@0700,1200 [facility] Last Admin: 05/05/18 08:05 Dose: 0.5 mg Fentanyl Citrate (Fentanyl Inj) 50 mcg IV.PUSH Q1H PRN PRN Reason: Pain Scale 3 - 5 Fentanyl Citrate (Fentanyl Inj) 100 mcg IV.PUSH Q1H PRN PRN Reason: PAIN SCALE 6 TO 10 Last Admin: 05/03/18 15:49 Dose: 100 mcg Lactated Ringer's (Lr 1000 Ml Inj) 1,000 mls @ 125 mls/hr IV.CONT .Q8H [facility] Last Admin: 05/05/18 04:31 Dose: Not Given Lactated Ringer's (Lr 1000 Ml Inj) 1,000 mls @ 3,000 mls/hr IV.SIG UNSCH PRN PRN Reason: compromise or epidural Last Admin: 05/03/18 15:49 Dose: 3,000 mls/hr Sodium Chloride (Ns Inj) 500 mls @ 1,000 mls/hr IV.SIG UNSCH PRN PRN Reason: SEE LABEL COMMENTS Sodium Chloride (Ns Inj) 1,000 mls @ 100 mls/hr IV.CONT .Q10H PRN PRN Reason: SEE LABEL COMMENTS Oxytocin (Pitocin 30 Units/Ns 500 Ml Premix) 30 units in 500 mls @ 2 mls/hr IV.SIG TITRATE PRN; Protocol PRN Reason: For induction of labor Last Admin: 05/03/18 12:17 Dose: 2 milliunit/min, 2 mls/hr Fentanyl/Bupivacaine/Sodium Chlor (Fentanyl 2 Mcg-Bupiv 0.125% Epi) 150 mls @ 12 mls/hr EPIDURAL PRN PRN PRN Reason: for Labor Pain Last Admin: 05/04/18 02:57 Dose: 12 mls/hr Ibuprofen (Motrin) 800 mg PO Q8H PRN PRN Reason: For Cramping Last Admin: 05/05/18 04:32 Dose: 800 mg Lactulose (Lactulose Liq) 30 ml PO DAILY PRN PRN Reason: SEVERE CONSITIPATION Lidocaine HCl (Xylocaine 1% Inj) 0.1 ml I-DERMAL UNSCH PRN PRN Reason: For IV start Stop: 05/06/18 11:28 Lidocaine HCl (Xylocaine 1% Inj) 10 ml INFILTRATN UNSCH PRN PRN Reason: For episiotomy repair Stop: 05/05/18 11:28 Mineral Oil (Muri-Lube Oil) 10 ml TOPICAL UNSCH PRN PRN Reason: PRN perineal massage Naloxone HCl (Narcan Inj) 0.1 mg IV.PUSH Q2M PRN PRN Reason: for opiate reversal Ondansetron HCl (Zofran Odt) 4 mg PO Q6H PRN PRN Reason: NAUSEA OR VOMITING Last Admin: 05/05/18 08:06 Dose: 4 mg Oxycodone/Acetaminophen (Percocet 5/325 Mg) 1 tab PO Q6H PRN PRN Reason: PAIN SCALE 3 TO 5 Last Admin: 05/05/18 04:40 Dose: 1 tab Senna/Docusate Sodium (Maribel-Colace) 1 tab PO BID [facility] Last Admin: 05/05/18 08:04 Dose: 1 tab Sennosides (Senokot) 17.2 mg PO Q12H PRN PRN Reason: Moderate Constipation Sodium Chloride (Ns Flush) 2 ml IV.FLUSH BID [facility] Last Admin: 05/05/18 04:15 Dose: Not Given Sodium Chloride (Ns Flush) 2 ml IV.FLUSH UNSCH PRN PRN Reason: FLUSH AFTER USING IV ACCESS Witch Ai/Glycerin (Tucks Pads) 1 applicatio RECTAL QID PRN PRN Reason: HEMORRHOIDS Last Admin: 05/04/18 11:08 Dose: 1 applicatio Zolpidem Tartrate (Ambien) 5 mg PO HS PRN PRN Reason: SLEEP Assessment and Plan - Diagnosis (1) with 37 weeks completed gestation Code(s): Z3A.37 - 37 weeks gestation of Status: Acute Plan: Patient is a 36 year-old delivered twins at 37 weeks and 1 days with R labial tear. Patient is day 1 after . Continue routine care. Motrin and Percocet when necessary for pain. Encourage OOB Pelvic rest for 6 weeks will need follow-up appointment at that time. Contraception: Mirena appropriately. Zofran added for nausea. Anticipate discharge tomorrow Discussed with Dr. Cartwright.
[2018-05-05 08:30] VITALS: TEMP 98.3
--- NOTE | 2018-05-06 08:29 | P.PNOB ---
Subjective Interval history: Patient seen and examined at bedside this morning. She is a 27 year-old delivered at 37 weeks. Patient is day 2 after . Patient's pain is well-controlled. Patient reports eating and drinking without any nausea or vomiting. Patient reports minimal bleeding. Patient has passed gas and had bowel movements. Patient is walking without lower extremity pain or shortness of breath. Patient reports desire for contraception and breast-feeding. Objective Result Diagrams: 05/03/18 10:55 Objective Remarks: GENERAL: Well-nourished, well-developed patient. CARDIOVASCULAR: Regular rate and rhythm without murmurs, gallops, or rubs. RESPIRATORY: Breath sounds equal bilaterally. No accessory muscle use. ABDOMEN/GI: Abdomen soft, non-tender. Fundus: Firm, non-tender at umbilicus. GENITOURINARY: Light to moderate bleeding. EXTREMITIES: No cyanosis or edema, non-tender, without signs of DVT. Medications and IVs: Active Medications Acetaminophen (Tylenol) 650 mg PO Q4H PRN PRN Reason: PAIN SCALE 1 TO 2 Acyclovir (Zovirax) 400 mg PO TID [facility] Last Admin: 05/05/18 19:33 Dose: 400 mg Al Hydroxide/Mg Hydroxide (Milk Of Magnesia Liq) 30 ml PO Q12H PRN PRN Reason: Mild Constipation Benzocaine (Americaine 20% Top [place]) 1 spray TOPICAL Q4H PRN PRN Reason: For Perineum Discomfort Last Admin: 05/04/18 11:09 Dose: 1 spray Bisacodyl (Dulcolax Supp) 10 mg RECTAL DAILY PRN PRN Reason: SEVERE CONSITIPATION Citric Acid/Sodium Citrate (Sodium Citrate/Citric Acid Liq) 30 ml PO BOOKKEEPING TEACHER [facility] Stop: 05/07/18 11:29 Clonazepam (Klonopin) 0.5 mg PO BID@0700,1200 [facility] Last Admin: 05/05/18 14:22 Dose: 0.5 mg Fentanyl Citrate (Fentanyl Inj) 50 mcg IV.PUSH Q1H PRN PRN Reason: Pain Scale 3 - 5 Fentanyl Citrate (Fentanyl Inj) 100 mcg IV.PUSH Q1H PRN PRN Reason: PAIN SCALE 6 TO 10 Last Admin: 05/03/18 15:49 Dose: 100 mcg Lactated Ringer's (Lr 1000 Ml Inj) 1,000 mls @ 125 mls/hr IV.CONT .Q8H [facility] Last Admin: 05/05/18 17:08 Dose: Not Given Lactated Ringer's (Lr 1000 Ml Inj) 1,000 mls @ 3,000 mls/hr IV.SIG UNSCH PRN PRN Reason: compromise or epidural Last Admin: 05/03/18 15:49 Dose: 3,000 mls/hr Sodium Chloride (Ns Inj) 500 mls @ 1,000 mls/hr IV.SIG UNSCH PRN PRN Reason: SEE LABEL COMMENTS Sodium Chloride (Ns Inj) 1,000 mls @ 100 mls/hr IV.CONT .Q10H PRN PRN Reason: SEE LABEL COMMENTS Oxytocin (Pitocin 30 Units/Ns 500 Ml Premix) 30 units in 500 mls @ 2 mls/hr IV.SIG TITRATE PRN; Protocol PRN Reason: For induction of labor Last Admin: 05/03/18 12:17 Dose: 2 milliunit/min, 2 mls/hr Fentanyl/Bupivacaine/Sodium Chlor (Fentanyl 2 Mcg-Bupiv 0.125% Epi) 150 mls @ 12 mls/hr EPIDURAL PRN PRN PRN Reason: for Labor Pain Last Admin: 05/04/18 02:57 Dose: 12 mls/hr Ibuprofen (Motrin) 800 mg PO Q8H PRN PRN Reason: For Cramping Last Admin: 05/05/18 22:01 Dose: 800 mg Lactulose (Lactulose Liq) 30 ml PO DAILY PRN PRN Reason: SEVERE CONSITIPATION Lidocaine HCl (Xylocaine 1% Inj) 0.1 ml I-DERMAL UNSCH PRN PRN Reason: For IV start Stop: 05/06/18 11:28 Mineral Oil (Muri-Lube Oil) 10 ml TOPICAL UNSCH PRN PRN Reason: PRN perineal massage Naloxone HCl (Narcan Inj) 0.1 mg IV.PUSH Q2M PRN PRN Reason: for opiate reversal Ondansetron HCl (Zofran Odt) 4 mg PO Q6H PRN PRN Reason: NAUSEA OR VOMITING Last Admin: 05/05/18 08:06 Dose: 4 mg Oxycodone/Acetaminophen (Percocet 5/325 Mg) 1 tab PO Q6H PRN PRN Reason: PAIN SCALE 3 TO 5 Last Admin: 05/06/18 07:10 Dose: 1 tab Senna/Docusate Sodium (Maribel-Colace) 1 tab PO BID [facility] Last Admin: 05/05/18 22:01 Dose: 1 tab Sennosides (Senokot) 17.2 mg PO Q12H PRN PRN Reason: Moderate Constipation Sodium Chloride (Ns Flush) 2 ml IV.FLUSH BID [facility] Last Admin: 05/06/18 06:34 Dose: Not Given Sodium Chloride (Ns Flush) 2 ml IV.FLUSH UNSCH PRN PRN Reason: FLUSH AFTER USING IV ACCESS Witch Ai/Glycerin (Tucks Pads) 1 applicatio RECTAL QID PRN PRN Reason: HEMORRHOIDS Last Admin: 05/04/18 11:08 Dose: 1 applicatio Zolpidem Tartrate (Ambien) 5 mg PO HS PRN PRN Reason: SLEEP Assessment and Plan - Diagnosis (1) with 37 weeks completed gestation Code(s): Z3A.37 - 37 weeks gestation of Status: Acute Plan: Patient is a 36 year-old delivered twins at 37 weeks and 1 days with R labial tear. Patient is day 2 after . Continue routine care. Motrin and Percocet when necessary for pain. Encourage OOB Pelvic rest for 6 weeks will need follow-up appointment at that time. Contraception: Mirena appropriately. Zofran added for nausea. Anticipate discharge today Discussed with Dr. Cartwright.
[2018-05-06] MEDS: Acyclovir 200 MG Capsule PO SCH ×2 (09:10→13:26)
[2018-05-06] MEDS: clonazePAM 0.5 MG Tablet PO SCH ×2 (09:10→14:11)
[2018-05-06] MEDS: Senna/Docusate Sodium 8.6/50 MG Tablet PO SCH (09:10)
[2018-05-06 09:58] VITALS: BP 121/88; PULSE 68; RESP 16
== END 2018-05-06 16:20 | disposition home or self-care (01) ==
LOC: H2E 10:34 → H1EA 05-04 09:53
PROVIDERS: ADMIT Obstetrics & Gynecology; ATTEND Obstetrics & Gynecology